=== PATIENT | male | born 1960 | race Caucasian/White ===

== ENCOUNTER → 2016-04-03 | Outpatient (CLI) | payer BC ==
[2016-04-03 07:28] LABS: Basophils % (A) 1 %; CH 32.1; CHCM 33.7; Eosinophils # (A) 0.3 k/uL (0-0.7); Eosinophils % (A) 6 %; HCT 50.1 % (39.0-53.0); HDW 2.37; HGB 16.1 gm/dL (13.0-17.5); Luc # (Auto) 0.17; Luc % (Auto) 4; Lymphocytes # (A) 1.5 k/uL (1.0-4.8); Lymphocytes % (A) 35 %; MCH 30.7 pg (25.0-35.0); MCHC 32.1 g/dL (31.0-37.0); MCV 95.5 fL (80.0-100.0); Mean Platelet Volume 6.2; Monocytes # (A) 0.3 k/uL (0-1.0); Monocytes % (A) 8 %; Neutrophils # (A) 2.1 k/uL (1.3-7.7); Neutrophils % (A) 48 %; RBC 5.24 m/uL (4.30-5.90); RDW 12.8 % (11.5-15.5); WBC 4.4 k/uL (3.8-10.6); WBC (Perox) 4.46
--- NOTE | 2016-04-03 08:26 | US ---
EXAMINATION TYPE: US carotid duplex BILAT DATE OF EXAM: 04/03/2016 7:18 AM COMPARISON: Carotid ultrasound March 16, 2014. CLINICAL HISTORY: HX of TIA Z86.73. Follow up to assess plaque EXAM MEASUREMENTS: RIGHT: Peak Systolic Velocity (PSV) cm/sec ----- Right CCA: 69.2 ----- Right ICA: 93.0 ----- Right ECA: 129.3 ICA/CCA ratio: 1.3 RIGHT: End Diastole cm/sec ----- Right CCA: 21.2 ----- Right ICA: 44.7 ----- Right ECA: 22.7 LEFT: Peak Systolic Velocity (PSV) cm/sec ----- Left CCA: 69.5 ----- Left ICA: 98.5 ----- Left ECA: 121.6 ICA/CCA ratio: 1.4 LEFT: End Diastole cm/sec ----- Left CCA: 26.8 ----- Left ICA: 31.5 ----- Left ECA: 23.8 VERTEBRALS (direction of flow): Right Vertebral: Antegrade Left Vertebral: Antegrade TECHNOLOGIST IMPRESSION: Mild heterogeneous plaque at bilateral bulbs, no significant stenosis seen. Grayscale images redemonstrate mild eccentric plaque at both carotid bulbs. Velocity measurements and ratios in visualized portion of both internal carotid arteries remains within normal limits. No sign ificant change from prior. IMPRESSION: No hemodynamically significant stenosis is identified in either internal carotid artery. No significant change from prior. Criteria for Assigning % of Stenosis / Diameter reduction (Estimation based on the indirect measurements of the internal carotid artery velocities (ICA PSV). 1. Normal (no stenosis)=ICA PSV < 125 cm/s: ratio < 2.0: ICA EDV<40 cm/s.
[2016-04-03 12:47] LABS: ALT 41 U/L (21-72); AST 28 U/L (17-59); Alkaline Phosphatase 58 U/L (38-126); Anion Gap 8 mmol/L; Blood Urea Nitrogen 25 mg/dL (9-20); Calcium 9.4 mg/dL (8.4-10.2); Carbon Dioxide 29 mmol/L (22-30); Chloride 106 mmol/L (98-107); Cholesterol 194 mg/dL (<200); Glucose 98 mg/dL (74-99); HDL Cholesterol 45 mg/dL (40-60); Non-African American GFR(MDRD) >60 (>60 ml/min/1.73 sqM); Sodium 143 mmol/L (137-145); Total Bilirubin 0.5 mg/dL (0.2-1.3); Total Protein 6.9 g/dL (6.3-8.2)
[2016-04-03 12:49] LABS: Triglycerides 116 mg/dL (<150)
== END | disposition home or self-care (01) ==
LOC: RADUSWWP 06:41
PROVIDERS: ATTEND Internal Medicine
DX: Z09 Encounter for follow-up examination after completed treatment for conditions other than malignant neoplasm (principal); I10 Essential (primary) hypertension; E78.5 Hyperlipidemia, unspecified; Z86.73 Personal history of transient ischemic attack (TIA), and cerebral infarction without residual deficits
CPT/HCPCS: 84439; 80061; 80053; 84443; 85025; 93880; G0103

== ENCOUNTER → 2019-11-18 | Outpatient (CLI) | payer BC ==
[2019-11-18 12:06] LABS: Basophils % (A) 1 %; Eosinophils # (A) 0.3 k/uL (0-0.7); Eosinophils % (A) 7 %; HCT 49.1 % (39.0-53.0); HGB 15.5 gm/dL (13.0-17.5); Lymphocytes # (A) 1.6 k/uL (1.0-4.8); Lymphocytes % (A) 33 %; MCH 29.9 pg (25.0-35.0); MCHC 31.6 g/dL (31.0-37.0); MCV 94.6 fL (80.0-100.0); Mean Platelet Volume 6.7; Monocytes # (A) 0.3 k/uL (0-1.0); Monocytes % (A) 7 %; Neutrophils # (A) 2.3 k/uL (1.3-7.7); Neutrophils % (A) 50 %; Platelet Count 282 k/uL (150-450); RDW 13.2 % (11.5-15.5); WBC 4.7 k/uL (3.8-10.6)
[2019-11-18 16:42] LABS: African American GFR (CKD) 118.9 (60.0-200.0); Albumin 4.5 g/dL (3.80-4.90); Albumin/Globulin Ratio 2.05 (1.60-3.17); Anion Gap 7.7 mmol/L (4.00-12.00); BUN/Creat Ratio 27.14 Ratio (12.00-20.00); Calcium 9.3 mg/dL (8.7-10.3); Carbon Dioxide 27.3 mmol/L (21.6-31.8); Chol/HDL Ratio 3.52; Globulin 2.2 g/dL (1.6-3.3); Non-African American GFR(CKD) 102.6 (60.0-200.0); Potassium 4.4 mmol/L (3.5-5.5); Total Bilirubin 0.6 mg/dL (0.2-1.2); Total Protein 6.7 g/dL (6.2-8.2)
[2019-11-18 16:50] LABS: Prostate Specific Antigen 1.3 ng/mL (0.0-4.5); T4, Free (Free Thyroxine) 1.2 ng/dL (0.80-1.80)
== END | disposition home or self-care (01) ==
LOC: LABWHC1 08:44
PROVIDERS: ATTEND Internal Medicine
DX: Z00.00 Encounter for general adult medical examination without abnormal findings (principal)
CPT/HCPCS: 36415; 80053; 80061; 84153; 84439; 84443; 85025

== ENCOUNTER → 2020-11-02 | Outpatient (CLI) | payer BC ==
[2020-11-02 11:03] LABS: Basophils # (A) 0.03 X 10*3/uL (0.00-0.10); Basophils % (A) 0.7 %; Eosinophils # (A) 0.33 X 10*3/uL (0.04-0.35); Eosinophils % (A) 7.3 %; HCT 45.9 % (39.6-50.0); HGB 15.3 g/dL (13.0-17.0); Lymphocytes # (A) 1.66 X 10*3/uL (0.90-5.00); Lymphocytes % (A) 36.8 %; MCH 31.1 pg (27.0-32.0); MCHC 33.3 g/dL (32.0-37.0); MCV 93.3 fL (80.0-97.0); Mean Platelet Volume 9.4 fL (9.5-12.2); Monocytes # (A) 0.58 X 10*3/uL (0.20-1.00); Monocytes % (A) 12.9 %; Neutrophils % (A) 42.1 %; Platelet Count 282 X 10*3/uL (140-440); RBC 4.92 X 10*6/uL (4.40-5.60); RDW 13.1 % (11.5-14.5); WBC 4.51 X 10*3/uL (4.50-10.00)
[2020-11-02 15:58] LABS: Hemoglobin A1C 5.4 % (4.0-6.0)
[2020-11-03 02:42] LABS: Albumin 4.6 g/dL (3.80-4.90); Albumin/Globulin Ratio 2.09 (1.60-3.17); BUN/Creat Ratio 37.14 Ratio (12.00-20.00); Calcium 9.2 mg/dL (8.7-10.3); Chol/HDL Ratio 3.24; Globulin 2.2 g/dL (1.6-3.3); LDL Cholesterol,Calculated 117.4 mg/dL (0.0-131.0); Non-African American GFR(CKD) 101.9 (60.0-200.0); Potassium 4.3 mmol/L (3.5-5.5); Total Bilirubin 0.5 mg/dL (0.3-1.2); Total Protein 6.8 g/dL (6.2-8.2); VLDL Calculation 14.6 mg/dL (5.00-40.00)
[2020-11-03 02:50] LABS: T4, Free (Free Thyroxine) 1.4 ng/dL (0.80-1.80)
[2020-11-03 02:51] LABS: Prostate Specific Antigen 1.1 ng/mL (0.0-4.5)
== END | disposition home or self-care (01) ==
LOC: LABWHC1 07:38
PROVIDERS: ATTEND Internal Medicine
DX: Z00.00 Encounter for general adult medical examination without abnormal findings (principal); E78.5 Hyperlipidemia, unspecified; I10 Essential (primary) hypertension
CPT/HCPCS: 36415; 80053; 80061; 83036; 84153; 84439; 84443; 85025

== ENCOUNTER → 2020-11-27 | Outpatient (CLI) | payer BC ==
--- NOTE | 2020-11-27 12:41 | US ---
EXAMINATION TYPE: US carotid duplex BILAT DATE OF EXAM: 11/27/2020 COMPARISON: US 2017 CLINICAL HISTORY: G45.9 tia. EXAM MEASUREMENTS: RIGHT: Peak Systolic Velocity (PSV) cm/sec ----- Right CCA: 60.7 ----- Right ICA: 150.0 ----- Right ECA: 124.0 ICA/CCA ratio: 2.5 RIGHT: End Diastole cm/sec ----- Right CCA: 18.5 ----- Right ICA: 53.0 ----- Right ECA: 21.0 LEFT: Peak Systolic Velocity (PSV) cm/sec ----- Left CCA: 69.6 ----- Left ICA: 89.2 ----- Left ECA: 118.0 ICA/CCA ratio: 1.3 LEFT: End Diastole cm/sec ----- Left CCA: 20.9 ----- Left ICA: 36.0 ----- Left ECA: 22.6 VERTEBRALS (direction of flow): Right Vertebral: Antegrade Left Vertebral: Antegrade Rhythm: Normal Elevated velocity: right prox and mid ICA Right ICA/CCA ratio 2.5 grayscale, color Doppler, spectral Doppler imaging performed of the carotid a rteries. Elevated peak systolic velocity and end-diastolic velocity, ICA to CCA ratio on the right is present, there is loss of the systolic window, spectral broadening on waveform analysis. IMPRESSION: Hemodynamic significant stenosis of the proximal internal carotid artery on the right co rresponds to 50-69% diameter reduction by Doppler criteria, an indirect measurement of carotid stenos is Criteria for Assigning % of Stenosis / Diameter reduction (Estimation based on the indirect measurements of the internal carotid artery velocities (ICA PSV). 1. Normal (no stenosis)=ICA PSV < 125 cm/s: ratio < 2.0: ICA EDV<40 cm/s. 2. Less than 50% stenosis=ICA PSV < 125 cm/s: ratio < 2.0: ICA EDV<40 cm/s. 3. 50 to 69% stenosis=ICA PSV of 125 to 230 cm/s: ration 2.0 ? 4.0: ICA EDV 40-100 cm/s. 4. Greater than 70% stenosis to near occlusion= ICA PSV > 230 cm/s: ratio > 4.0: ICA EDV > 100 cm/s. 5. Near occlusion= ICA PSV velocities may be low or undetectable: variable ratio and ICA EDV. 6. Total occlusion=unable to detect flow.
== END | disposition home or self-care (01) ==
LOC: RADUSWWP 10:50
PROVIDERS: ATTEND Internal Medicine
DX: I65.21 Occlusion and stenosis of right carotid artery (principal)
CPT/HCPCS: 93880

== ENCOUNTER → 2021-11-02 | Outpatient (CLI) | payer BC ==
--- NOTE | 2021-11-02 11:19 | US ---
EXAMINATION TYPE: US carotid duplex BILAT DATE OF EXAM: 11/02/2021 COMPARISON: US 1121 CLINICAL HISTORY: Z86.73 HX OF TRANSIENT ISCHEMIC ATTACK. H/O TIA, follow-up TECHNIQUE: Carotid duplex ultrasound examination. Indirect Doppler criteria was utilized. FINDINGS: EXAM MEASUREMENTS: RIGHT: Peak Systolic Velocity (PSV) cm/sec ----- Right CCA: 66.0 ----- Right ICA: 178.5 ----- Right ECA: 125.3 ICA/CCA ratio: 2.7 RIGHT: End Diastole cm/sec ----- Right CCA: 21.5 ----- Right ICA: 62.3 ----- Right ECA: 20.4 LEFT: Peak Systolic Velocity (PSV) cm/sec ----- Left CCA: 71.2 ----- Left ICA: 97.8 ----- Left ECA: 114.7 ICA/CCA ratio: 1.4 LEFT: End Diastole cm/sec ----- Left CCA: 23.2 ----- Left ICA: 38.3 ----- Left ECA: 20.2 VERTEBRALS (direction of flow): Right Vertebral: Antegrade Left Vertebral: Antegrade Rhythm: Normal GRINDER SETUP OPERATOR NOTES: Soft plaque right bulb and ICA causing elevated velocities and significant stenosis IMPRESSION: 1. Atheromatous plaquing with moderate stenosis of the right internal carotid artery between 50 and 6 9%. Correlate with the patient's clinical symptoms. 2. Findings are similar to the comparison of 11/27/2020 Criteria for Assigning % of Stenosis / Diameter reduction (Estimation based on the indirect measurements of the internal carotid artery velocities (ICA PSV). 1. Normal (no stenosis)=ICA PSV < 125 cm/s: ratio < 2.0: ICA EDV<40 cm/s. 2. Less than 50% stenosis=ICA PSV < 125 cm/s: ratio < 2.0: ICA EDV<40 cm/s. 3. 50 to 69% stenosis=ICA PSV of 125 to 230 cm/s: ration 2.0 ? 4.0: ICA EDV 40-100 cm/s. 4. Greater than 70% stenosis to near occlusion= ICA PSV > 230 cm/s: ratio > 4.0: ICA EDV > 100 cm/s. 5. Near occlusion= ICA PSV velocities may be low or undetectable: variable ratio and ICA EDV. 6. Total occlusion=unable to detect flow.
== END | disposition home or self-care (01) ==
LOC: RADUSWWP 10:47
PROVIDERS: ATTEND Internal Medicine
DX: I65.21 Occlusion and stenosis of right carotid artery (principal); Z86.73 Personal history of transient ischemic attack (TIA), and cerebral infarction without residual deficits
CPT/HCPCS: 93880

== ENCOUNTER → 2021-12-14 | Outpatient (CLI) | payer BC ==
[2021-12-14 17:58] LABS: Basophils # (A) 0.03 X 10*3/uL (0.00-0.10); Basophils % (A) 0.7 %; Eosinophils # (A) 0.22 X 10*3/uL (0.04-0.35); Eosinophils % (A) 4.9 %; HGB 15.9 g/dL (13.0-17.0); Immature Grans, Automated 0.2 %; Lymphocytes # (A) 1.35 X 10*3/uL (0.90-5.00); Lymphocytes % (A) 29.9 %; MCH 31.8 pg (27.0-32.0); MCHC 33.8 g/dL (32.0-37.0); Mean Platelet Volume 9.5 fL (9.5-12.2); Monocytes # (A) 0.47 X 10*3/uL (0.20-1.00); Monocytes % (A) 10.4 %; NRBC Per 100 WBC 0 /100 WBCS (0.0-0.0); Neutrophils # (A) 2.44 X 10*3/uL (1.80-7.70); Neutrophils % (A) 53.9 %; Platelet Count 311 X 10*3/uL (140-440); RDW 13.2 % (11.5-14.5); WBC 4.52 X 10*3/uL (4.50-10.00)
[2021-12-14 18:29] LABS: African American GFR (CKD) 118.5 (60.0-200.0); Albumin 4.8 g/dL (3.8-4.9); Albumin/Globulin Ratio 1.95 (1.60-3.17); Anion Gap 10.7 mmol/L (10.00-18.00); BUN/Creat Ratio 40.18 Ratio (12.00-20.00); Blood Urea Nitrogen 27.4 mg/dL (9.0-27.0); Calcium 9.6 mg/dL (8.7-10.3); Carbon Dioxide 26.3 mmol/L (20.0-27.5); Globulin 2.5 g/dL (1.6-3.3); Non-African American GFR(CKD) 102.2 (60.0-200.0); Potassium 4.3 mmol/L (3.5-5.5); Prostate Specific Antigen 1.5 ng/mL (0.00-4.50); T4, Free (Free Thyroxine) 1.24 ng/dL (0.800-1.800); Total Bilirubin 0.2 mg/dL (0.30-1.20); Total Protein 7.2 g/dL (6.2-8.2)
== END | disposition home or self-care (01) ==
LOC: LABWHC1 07:37
PROVIDERS: ATTEND Internal Medicine
DX: Z00.00 Encounter for general adult medical examination without abnormal findings (principal)
CPT/HCPCS: 36415; 80053; 84153; 84439; 84443; 85025

== ENCOUNTER → 2022-02-27 | Outpatient (CLI) | payer BC ==
[2022-02-27 16:30] LABS: Chol/HDL Ratio 3.89 Ratio; LDL Cholesterol,Calculated 130.6 mg/dL (0.0-131.0); VLDL Calculation 15.84 mg/dL (5.00-40.00)
== END | disposition home or self-care (01) ==
LOC: LABWHC1 07:13
PROVIDERS: ATTEND Internal Medicine
DX: Z00.00 Encounter for general adult medical examination without abnormal findings (principal)
CPT/HCPCS: 36415; 80061

== ENCOUNTER 2022-09-17 09:12 | Day surgery (SDC) | payer BC ==
[~2022-09-17 09:12] MED LIST: LACTATED RINGERS 1,000 ML IV SCH
[2022-09-17 09:32] VITALS: TEMP 97.5
[2022-09-17] MEDS ORDERED: PROPOFOL 10 MG/ML 20 ML VIAL IV ONE (10:09)
--- NOTE | 2022-09-17 10:28 | P.PCN ---
Date of Procedure: 09/17/22 Procedure(s) Performed: BRIEF HISTORY: Patient is a 62-year-old pleasant male scheduled for an elective colonoscopy as a part of screening for colon cancer. PROCEDURE PERFORMED: Colonoscopy. PREOPERATIVE DIAGNOSIS: Screening for colon cancer. IV sedation per Anesthesia. PROCEDURE: After informed consent was obtained, the patient, was brought into the endoscopy unit. IV sedation was administered by Anesthesia under continuous monitoring. Digital rectal examination was normal. Initially the Olympus CF-160 flexible video colonoscope was then inserted in the rectum, gradually advanced into the cecum without any difficulty. Careful examination was performed as the scope was gradually being withdrawn. Ileocecal valve and the appendiceal orifice were visualized and appeared normal. Prep was excellent. Mucosa of the cecum, ascending colon, transverse colon, descending colon, sigmoid colon, and rectum appeared normal. Retroflexion was performed in the rectum and no lesions were seen. The patient tolerated the procedure well. IMPRESSION: Normal-appearing colon from rectum to cecum with no evidence of colorectal neoplasia . RECOMMENDATIONS: Findings of this examination were discussed with the patient as well as his family.. He was advised to have a repeat screening colonoscopy in 10 years..
[2022-09-17 10:41] VITALS: RESP 16
[2022-09-17 10:59] VITALS: BP 130/81; PULSE 55
== END 2022-09-17 11:02 | disposition home or self-care (01) ==
LOC: ORWHC2ENDO 09:12
PROVIDERS: ATTEND Internal Medicine Gastroenterology
DX: Z12.11 Encounter for screening for malignant neoplasm of colon (principal); I10 Essential (primary) hypertension; E78.5 Hyperlipidemia, unspecified; J45.909 Unspecified asthma, uncomplicated; Z88.0 Allergy status to penicillin; Z79.899 Other long term (current) drug therapy
CPT/HCPCS: 45378; J2704

== ENCOUNTER → 2024-06-21 | Outpatient (CLI) | payer MEDICARE ==
[2024-06-21 10:22] LABS: Basophils # (A) 0.03 X 10*3/uL (0.00-0.10); Basophils % (A) 0.7 %; Eosinophils % (A) 4.6 %; HCT 47.5 % (39.6-50.0); HGB 16.1 g/dL (13.0-17.0); Lymphocytes % (A) 32.5 %; MCH 31.4 pg (27.0-32.0); MCHC 33.9 g/dL (32.0-37.0); MCV 92.6 FL (80.0-97.0); Mean Platelet Volume 9.1 FL (9.5-12.2); Monocytes # (A) 0.62 X 10*3/uL (0.20-1.00); Monocytes % (A) 14.4 %; NRBC Per 100 WBC 0 X 10*3/uL (0.00-0.01); Neutrophils # (A) 2.05 X 10*3/uL (1.80-7.70); Neutrophils % (A) 47.6 %; Platelet Count 269 X 10*3/uL (140-440); RBC 5.13 X 10*6/uL (4.40-5.60); RDW 12.7 % (11.5-14.5); WBC 4.31 X 10*3/uL (4.50-10.00)
[2024-06-21 11:41] LABS: ALT 39 U/L (10-49); AST 32 U/L (14-35); Albumin 4.4 g/dL (3.8-4.9); Alkaline Phosphatase 61 U/L (41-126); Calcium 9.1 mg/dL (8.7-10.3); Carbon Dioxide 23.5 mmol/L (21.6-31.8); Chloride 100 mmol/L (96-109); Chol/HDL Ratio 3.42 Ratio; Glucose 103 mg/dL (70-110); LDL Cholesterol,Calculated 122.9 mg/dL (0.0-131.0); Potassium 4.4 mmol/L (3.5-5.5); Sodium 138 mmol/L (135-145); Total Bilirubin 0.4 mg/dL (0.3-1.2); Total Protein 6.4 g/dL (6.2-8.2); VLDL Calculation 13.58 mg/dL (5.00-40.00)
[2024-06-21 11:42] LABS: T4, Free (Free Thyroxine) 1.25 ng/dL (0.80-1.80)
== END | disposition home or self-care (01) ==
LOC: LABWHC1 07:47
PROVIDERS: ATTEND Internal Medicine
DX: Z00.00 Encounter for general adult medical examination without abnormal findings (principal); Z12.5 Encounter for screening for malignant neoplasm of prostate; I10 Essential (primary) hypertension; M19.90 Unspecified osteoarthritis, unspecified site; E78.00 Pure hypercholesterolemia, unspecified; Z86.73 Personal history of transient ischemic attack (TIA), and cerebral infarction without residual deficits
CPT/HCPCS: 84439; 80061; 80053; 84443; 85025; 83036; 36415; G0103

== ENCOUNTER → 2024-07-06 | Outpatient (CLI) | payer MEDICARE ==
--- NOTE | 2024-07-06 08:36 | US ---
EXAMINATION TYPE: US carotid duplex BILAT DATE OF EXAM: 07/06/2024 COMPARISON: 11/02/21 CLINICAL INDICATION: Male, 64 years old with history of I65.29 OCCLUSION AND STENOSIS OF UNSPECIFIED CAROT; follow up on stenosis Additional History: I65.- Occlusion/stenosis of specified precerebral artery, specified laterality TECHNIQUE: Grayscale, color Doppler and spectral Doppler evaluation of the bilateral carotid systems and vertebral arteries. Indirect Doppler criteria was utilized. FINDINGS: EXAM MEASUREMENTS: RIGHT: Peak Systolic Velocity (PSV) cm/sec ----- Right CCA: 70.0 ----- Right ICA: 370.1 ----- Right ECA: 113.9 ICA/CCA ratio: 5.3 RIGHT: End Diastole cm/sec ----- Right CCA: 19.4 ----- Right ICA: 125.4 ----- Right ECA: 22.9 LEFT: Peak Systolic Velocity (PSV) cm/sec ----- Left CCA: 79.1 ----- Left ICA: 84.2 ----- Left ECA: 90.1 ICA/CCA ratio: 1.1 LEFT: End Diastole cm/sec ----- Left CCA: 22.8 ----- Left ICA: 35.8 ----- Left ECA: 17.6 VERTEBRALS (direction of flow): Right Vertebral: Antegrade Left Vertebral: Antegrade Rhythm: Normal SERVICE DELIVERY DIRECTOR NOTES: Moderate amount of plaque seen in bilateral bulbs and bilateral prox ICA's. Narrow ing seen in the right prox ICA resulting in elevated velocities. IMPRESSION: Velocity elevations proximal right ICA indicate a severe, greater than 70%, right ICA stenosis. Measu rements increased from 11/02/2021. Criteria for Assigning % of Stenosis / Diameter reduction (Estimation based on the indirect measurements of the internal carotid artery velocities (ICA PSV). 1. Normal (no stenosis)=ICA PSV < 180 cm/s: ratio < 2.0: ICA EDV<40 cm/s. 2. Less than 50% stenosis=ICA PSV < 180 cm/s: ratio < 2.0: ICA EDV<40 cm/s. 3. 50 to 69% stenosis=ICA PSV of 180 to 230 cm/s: ration 2.0 ? 4.0: ICA EDV 40-100 cm/s. PSV 125-180 cm/sec and ICA/CCA PSV Ratio ? 2.0 is also consistent with 50-69% stenosis 4. Greater than 70% stenosis to near occlusion= ICA PSV > 230 cm/s: ratio > 4.0: ICA EDV > 100 cm/s. 5. Near occlusion= ICA PSV velocities may be low or undetectable: variable ratio and ICA EDV. 6. Total occlusion=unable to detect flow. [facility], , 07/06/2024 8:33 AM
== END | disposition home or self-care (01) ==
LOC: RADUSWWP 07:55
PROVIDERS: ATTEND Internal Medicine
DX: I65.21 Occlusion and stenosis of right carotid artery (principal)
CPT/HCPCS: 93880

== ENCOUNTER → 2024-07-30 | Outpatient (CLI) | payer MEDICARE ==
[2024-07-30 13:31] LABS: African American GFR (CKD) >90 (>60 ml/min/1.73 sqM); Blood Urea Nitrogen 20 mg/dL (9-20); Non-African American GFR(CKD) >90 (>60 ml/min/1.73 sqM)
--- NOTE | 2024-07-30 14:51 | CT ---
EXAMINATION TYPE: CT angio head neck DATE OF EXAM: 07/30/2024 COMPARISON: None CLINICAL INDICATION: Male, 64 years old with history of I65.29 STENOSIS OF UNSPECIFIED CAROTID ARTERY ; PHH, Unspecified carotid stenosis, pt states RT side is more TECHNIQUE: CTA scan of the head and neck is performed with IV Contrast, patient injected with 65 mL of Isovue 370, axial images are obtained, coronal and sagittal reformatted images are reviewed. 3D re constructed images are created on an independent workstation and reviewed. CT DLP: [address] CTDI: mGy Automated exposure control for dose reduction was used. NASCET criteria was used in interpretation of this exam? FINDINGS: FINDINGS: The brachiocephalic origins are widely patent and no significant stenosis. There is marked irregularity in the proximal segment of the right internal carotid artery just distal to the carotid bifurcation. There is a severe greater than 70% stenosis possibly with a degree of ul ceration. The right common carotid artery is widely patent without significant stenosis. There is a minimal 10-20% stenosis of the origin of the left internal carotid artery. The vertebral a rteries are widely patent without significant stenosis. IMPRESSION:. 1. No stenosis of the brachiocephalic origins. 2. Severe greater than 70% stenosis with possible ulceration in the proximal right internal carotid a rtery. 3. Minimal left internal carotid artery stenosis. NASCET criteria was used in interpretation of this exam? [facility], , 07/30/2024 2:49 PM
== END | disposition home or self-care (01) ==
LOC: RADCTMAIN 12:50
PROVIDERS: ATTEND Surgery
DX: I65.23 Occlusion and stenosis of bilateral carotid arteries (principal)
CPT/HCPCS: 82565; 84520; 70496; 70498; 36415; Q9967

== ENCOUNTER → 2024-09-13 | Outpatient (CLI) | payer MEDICARE ==
[2024-09-13 10:10] LABS: HCT 44.3 % (39.6-50.0); HGB 14.4 g/dL (13.0-17.0); MCH 30.8 pg (27.0-32.0); MCHC 32.5 g/dL (32.0-37.0); MCV 94.9 FL (80.0-97.0); NRBC Per 100 WBC 0 X 10*3/uL (0.00-0.01); Platelet Count 263 X 10*3/uL (140-440); RBC 4.67 X 10*6/uL (4.40-5.60); RDW 13.3 % (11.5-14.5); WBC 4.35 X 10*3/uL (4.50-10.00)
== END | disposition home or self-care (01) ==
LOC: LABPAT 07:25
PROVIDERS: ATTEND Anesthesiology
DX: Z01.812 Encounter for preprocedural laboratory examination (principal); I65.23 Occlusion and stenosis of bilateral carotid arteries
CPT/HCPCS: 84132; 85027; 86850; 86900; 86901

== ENCOUNTER 2024-09-15 05:34 | Inpatient (IN) | payer MEDICARE ==
[2024-09-10 10:02] VITALS: BMI 29.3
[2024-09-15] MEDS ORDERED: LIDOCAINE 1% (10MG/ML) FOR IV START INTRADERMA PRN (05:57)
[2024-09-15] MEDS: IV FLUID CONTINUATION 1,000 ML IV ONE (06:09)
[2024-09-15] MEDS: ONDANSETRON 4 MG/2 ML VIAL IVP ONE (06:24)
[2024-09-15] MEDS: LACTATED RINGERS 1,000 ML IV SCH (06:24)
[2024-09-15] MEDS: DEXAMETHASONE SOD PHOSPHATE 4 MG/ML 1 ML VIAL IVP STA (06:25)
[2024-09-15] MEDS: MIDAZOLAM 2 MG/2 ML VIAL IV ONE (06:49)
[2024-09-15] MEDS ORDERED: HYDROmorphone 0.5 MG/0.5 ML SYRINGE IVP PRN (07:00)
[2024-09-15] MEDS ORDERED: GLYCOPYRROLATE 0.2 MG/ML 2 ML VIAL ONE (07:24)
[2024-09-15] MEDS ORDERED: MIDAZOLAM 2 MG/2 ML VIAL ONE (07:24)
[2024-09-15] MEDS ORDERED: NEOSTIGMINE 1 MG/ML 10 ML VIAL ONE (07:24)
[2024-09-15] MEDS ORDERED: LIDOCAINE 1% INJ 10MG/ML (20 ML MDV) ONE (07:24)
[2024-09-15] MEDS ORDERED: PHENYLEPHRINE 10 MG/ML VIAL ONE (07:24)
[2024-09-15] MEDS ORDERED: ePHEDrine 50 MG/ML 1 ML VIAL ONE (07:24)
[2024-09-15] MEDS ORDERED: PHENYLEPHRINE-0.9% NACL SYG 1,000 MCG/10 ML SYRINGE ONE (07:24)
[2024-09-15] MEDS ORDERED: HEPARIN SODIUM,PORCINE 10,000 UNIT/ML 1 ML VIAL ONE (07:24)
[2024-09-15] MEDS ORDERED: PROPOFOL 10 MG/ML 20 ML VIAL IV ONE (07:24)
[2024-09-15] MEDS ORDERED: fentaNYL (PF) 50 MCG/ML 2 ML AMP ONE (07:24)
[2024-09-15] MEDS ORDERED: ROCURONIUM 10 MG/ML (5 ML VIAL) IV ONE (07:24)
[2024-09-15] MEDS: LIDOCAINE 1% INJ 10MG/ML (20 ML MDV) SQ ONE (08:02)
[2024-09-15] MEDS: HEPARIN SODIUM (1,000 UNIT/ML) 2,000 UNIT in SODIUM CHLORIDE 0.9% 1,000 ML IRRIGATION ONE (08:03)
[2024-09-15] MEDS: ceFAZolin 2 GM in SODIUM CHLORIDE 0.9% 500 ML 500 ML IRRIGATION ONE (08:03)
[2024-09-15] MEDS: THROMBIN (BOVINE) 5,000 UNIT VIAL TOPICAL ONE ×2 (08:06→09:14)
[2024-09-15] MEDS: LACTATED RINGERS 1,000 ML IV ONE ×2 (09:26→12:27)
[2024-09-15] MEDS ORDERED: HYDROcodone/APAP 5-325MG 1 EACH TAB PO PRN (09:36)
[2024-09-15] MEDS ORDERED: TRIMETHOBENZAMIDE 100 MG/ML 2 ML VIAL IM PRN (09:36)
[2024-09-15] MEDS ORDERED: MAG HYDROX/AL HYDROX/SIMETH 30 ML CUP PO PRN (09:36)
[2024-09-15] MEDS ORDERED: MORPHINE SULFATE 4 MG/ML SYRINGE IV PRN (09:36)
[2024-09-15] MEDS ORDERED: BENZOCAINE/MENTHOL LOZENG 1 EACH LOZENGE MUCOUS MEM PRN (09:36)
[2024-09-15] MEDS: PHENYLEPHRINE 10 MG/ML VIAL IV ONE ×5 (10:02→10:36)
--- NOTE | 2024-09-15 10:38 | P.OP ---
Description of Procedure: Date of Procedure: 09/15/2024 Preoperative Diagnosis: Symptomatic right internal carotid artery stenosis Postoperative Diagnosis: Same Procedure(s) Performed: Right carotid endarterectomy with patch angioplasty Anesthesia: CATERINAA Surgeon: Jai Forrester Estimated Blood Loss (ml): 50 IV Fluids: See anesthesia record Urine Output: See anesthesia record Pathology: Carotid plaque Condition: stable Disposition: PACU Indications for Procedure: 64-year-old gentleman with history of TIA years ago presented to the office secondary to severe stenosis of the right internal carotid artery seen on carotid duplex as well as CTA. Due to his age and location of the plaque as well as the calcification it was determined that he would be a good candidate for carotid endarterectomy and presents today for such procedure. Description of Procedure: After written informed consent was obtained the patient all risks benefits and complications were described the patient is brought to the operative suite and laid in a supine position. The area of the neck was prepped and draped in usual sterile fashion after appropriate anesthetic was performed per the anesthesiologist. A timeout was performed in normal fashion antibiotics were administered prior to incision. An oblique incision was then created just anterior to the sternocleidomastoid mu sculature with a 10 blade scalpel and dissection was carried down to the carotid sheath. The carotid sheath was then entered after facial vein was located and suture ligated in normal fashion. The common carotid, internal carotid, external carotid and superior thyroid arteries were located and dissected free in a meticulous fashion circumferentially and controlled with vessel loops. Attention was then placed to locating the vagus nerve as well as hypoglossal nerve which were both spared. Once controlled patient was administered heparin and followed with ACTs for appropriate heparinization. Once ACT was above 200 the proximal and distal aspects of the dissection were then controlled with vascular clamps. Arteriotomy was then created with 11 blade scalpel and extended with Woodruff Chaves scissors. Cerebral oximetry was utilized throughout the case and did not drop more than 10 points throughout the case. No shunt was required and endarterectomy was then performed with a [place] and elevator. The plaque was then feathered at the distal aspect and the internal carotid artery and removed. The area was copiously irrigated with heparinized saline and all free debris was removed. A 7-0 Prolene suture was then placed to tack the distal aspect of the dissection at the internal carotid artery. A 0.8 x 8 cm bovine pericardial patch was then chosen and patch angioplasty was performed with 6-0 Prolene suture in a running fashion. Prior to last sutures being placed the inflow was released flushing any free debris out of the patch. This was reclamped and the internal carotid artery was released revealing good brisk flow and was once again reclamped. The external carotid and superior thyroid artery were then released followed by the common carotid artery to allow any free debris to be flushed into the external system. Final sutures were placed and secured. Internal carotid artery control was then released. Good pulsatile flow was noted through the patch and a Doppler was utilized demonstrating good brisk flow into the internal, external carotid arteries without any signs of obstruction. Hemostasis was then assured with Gelfoam and thrombin. A 10- Polish VALERIE drain was then placed in normal fashion and secured with 3-0 nylon suture. The incision was then closed in a multilayer fashion after hemostasis was assured. The skin was then cleansed and dressings were placed. Patient tolerated the procedure well and was following commands and moving all extremities. Patient was then sent to PACU for recovery.
[2024-09-15] MEDS: PHENYLEPHRINE 40 MG in SODIUM CHLORIDE 0.9% 250 ML IV SCH (10:41)
[2024-09-15 12:44] LABS: Glucose,Whole Blood 136 mg/dL (70-110)
[2024-09-15 13:33] LABS: Basophils # (A) 0.02 10*3/uL (0.00-0.10); Basophils % (A) 0.2 %; Eosinophils # (A) 0.01 10*3/uL (0.04-0.35); Eosinophils % (A) 0.1 %; HCT 41.4 % (39.6-50.0); HGB 14.5 g/dL (13.0-17.0); Lymphocytes # (A) 0.78 10*3/uL (0.90-5.00); Lymphocytes % (A) 7.0 %; MCH 32.6 pg (27.0-32.0); MCHC 35.0 g/dL (32.0-37.0); MCV 93.0 fL (80.0-97.0); Monocytes # (A) 0.32 10*3/uL (0.20-1.00); Monocytes % (A) 2.9 %; Neutrophils # (A) 10.00 10*3/uL (1.80-7.70); Neutrophils % (A) 89.4 %; Platelet Count 323 10*3/uL (140-440); RBC 4.45 10*6/uL (4.40-5.60); RDW 13.1 % (11.5-14.5); WBC 11.17 10*3/uL (4.50-10.00)
[2024-09-15 13:54] LABS: African American GFR (CKD) >90 (>60 ml/min/1.73 sqM); Anion Gap 9 mmol/L; Blood Urea Nitrogen 13 mg/dL (9-20); Calcium 9.3 mg/dL (8.4-10.2); Carbon Dioxide 23 mmol/L (22-30); Chloride 106 mmol/L (98-107); Glucose 128 mg/dL (74-99); Non-African American GFR(CKD) >90 (>60 ml/min/1.73 sqM); Potassium 4.3 mmol/L (3.5-5.1); Sodium 138 mmol/L (137-145)
--- NOTE | 2024-09-15 14:31 | P.CONS ---
History of Present Illness - Reason for Consult Consult date: 09/15/24 - History of Present Illness Patient is a 64-year-old male with history of TIA, carotid artery stenosis, hypertension, dyslipidemia presenting for elective right carotid endarterectomy with patch angioplasty. [facility] physicians consulted for medical management. Patient currently bradycardic with heart rate of 46, respiratory rate of 10, blood pressure 134/58, saturating at 95% on room air. Postoperatively, patient is on phenylephrine. Currently being monitored in medical ICU. WBC 11.17, platelet 223, hemoglobin 14.5, creatinine 0.51, glucose range between 128-136. Pertinent positives and negatives as discussed in HPI, a complete review of systems was performed and all other systems are negative. Patient seen and examined at bedside. Vital signs reviewed General: nontoxic, no distress, appears at stated age Derm: warm, dry, dressing clean, dry, intact Head: atraumatic, normocephalic, symmetric Eyes: EOMI, no lid lag, anicteric sclera, pupils equal round reactive to light ENT: Nose and ears atraumatic Neck: No thyromegaly, supple Mouth: no lip lesion, mucus membranes moist Cardiovascular: S1S2 reg, no murmur, no edema Lungs: clear to auscultation bilateral, no rhonchi, no rales, no wheeze, no accessory muscle use Abdominal: soft, nontender to palpation, no guarding, no appreciable orga nomegaly Ext: no gross muscle atrophy, muscle strength muscle strength 5 out of 5 in all 4 extremities, no contractures Neuro: CN II-XII grossly intact Psych: Alert, oriented, appropriate affect Assessment/Plan: Active: Carotid artery stenosis status post right carotid endarterectomy with patch angioplasty Postoperative hypotension and bradycardia, anticipated outcome Leukocytosis, likely reactive History of TIA Dyslipidemia - On aspirin 162 mg daily - Restart home ezetimibe 10 mg daily - On phenylephrine, continue to wean - Continue to monitor CBC and BMP History of hypertension - Hold amlodipine, hydrochlorothiazide, losartan given hypotension Lovenox 40 subcu daily for DVT prophylaxis Pain control per vascular surgery Thank you for allowing us to participate in the care of this pleasant patient. Do not hesitate to contact us with questions. Someone can be reached from the [facility] hospitalist group all hours of the day at [phone] or via [employer]. Past Medical History Past Medical History: Asthma, CVA/TIA, Hyperlipidemia, Hypertension Additional Past Medical History / Comment(s): allergies-rare asthma with air quality or pollens, TIA, R carotid stenosis History of Any Multi-Drug Resistant Organisms: None Reported Past Surgical History: Hernia Repair Additional Past Surgical History / Comment(s): Colonoscopy Past Anesthesia/Blood Transfusion Reactions: No Reported Reaction, Motion Sickness Additional Past Anesthesia/Blood Transfusion Reaction / Comm: No hx of blood transfusion; motion sickness on boat Smoking Status: Never smoker - Past Family History Mother Family Medical History: Cancer Additional Family Medical History / Comment(s): lymphoma Father Family Medical History: Cancer Additional Family Medical History / Comment(s): stomach Medications and Allergies Home Medications Medication Instructions Recorded Confirmed Type Clopidogrel [Plavix] 75 mg PO DAILY 09/10/22 09/10/24 History Ezetimibe [Zetia] 10 mg PO DAILY 09/10/22 09/10/24 History Losartan Potassium 100 mg PO DAILY 09/10/22 09/10/24 History amLODIPine BESYLATE 10 mg PO DAILY 09/10/22 09/10/24 History hydroCHLOROthiazide 25 mg PO DAILY 09/10/22 09/10/24 History Albuterol Inhaler [Ventolin Hfa 1 - 2 puff INHALATION Q6H PRN 09/10/24 09/10/24 History Inhaler] Aspirin [Adult Low Dose Aspirin EC] 81 mg PO DAILY 09/10/24 09/10/24 History Cholecalciferol [Vitamin D3 (25 1 dose PO DAILY 09/10/24 09/10/24 History Mcg = 1000 Iu)] Cider Vinegar [Apple Cider Vinegar] 450 mg PO DAILY 09/10/24 09/10/24 History Cinnamon Bark [Cinnamon] 1 dose PO DAILY 09/10/24 09/10/24 History Ursula 1 dose PO DAILY 09/10/24 09/10/24 History Glucosamine/Chondr Chen A Sod [Osteo 1 each PO DAILY 09/10/24 09/10/24 History Bi-Flex Caplet] L.acidoph,Paracasei, B.lactis 1 each PO DAILY 09/10/24 09/10/24 History [Probiotic] Magnesium Glycinate 1 dose PO DAILY 09/10/24 09/10/24 History Red Beet [Beet Root] 1 dose PO DAILY 09/10/24 09/10/24 History flaxseed oiL [Flax Oil] 1 dose PO DAILY 09/10/24 09/10/24 History Allergies Allergy/AdvReac Type Severity Reaction Status Date / Time cat dander Allergy Rash/Hives Verified 09/10/24 09:33 mold Allergy Rash/Hives Verified 09/10/24 09:33 Penicillins Allergy Rash/Hives Verified 09/10/24 09:33 Physical Exam Vitals: Vital Signs Temp Pulse Pulse Resp BP BP BP 09/15/24 14:00 46 L 10 L 09/15/24 13:45 45 L 12 09/15/24 13:30 48 L 12 09/15/24 13:15 48 L 19 131/42 09/15/24 13:00 46 L 16 09/15/24 12:50 98.0 F 49 L 14 09/15/24 12:40 120/68 09/15/24 12:20 49 L 12 127/68 133/59 09/15/24 12:05 47 L 12 130/78 130/57 09/15/24 11:40 49 L 12 138/73 136/60 09/15/24 11:25 45 L 11 L 139/77 140/61 09/15/24 11:10 46 L 10 L 139/72 132/58 09/15/24 10:55 46 L 12 143/80 136/60 09/15/24 10:45 48 L 12 93/61 90/46 09/15/24 10:40 45 L 12 93/61 09/15/24 10:36 100/62 100/50 09/15/24 10:32 112/59 125/61 09/15/24 10:30 110/65 09/15/24 10:25 64 12 103/62 09/15/24 10:18 100/53 09/15/24 10:11 102/49 09/15/24 10:09 49 L 9 L 103/65 100/49 09/15/24 10:07 108/53 09/15/24 10:05 112/54 09/15/24 10:03 127/63 09/15/24 10:02 99/60 09/15/24 09:54 97.7 F 68 12 124/58 99/60 09/15/24 07:06 59 L 16 09/15/24 06:12 98.1 F 71 18 BP Pulse Ox 09/15/24 14:00 95 09/15/24 13:45 96 09/15/24 13:30 97 09/15/24 13:15 96 09/15/24 13:00 96 09/15/24 12:50 96 09/15/24 12:40 09/15/24 12:20 97 09/15/24 12:05 98 09/15/24 11:40 98 09/15/24 11:25 95 09/15/24 11:10 95 09/15/24 10:55 94 L 09/15/24 10:45 95 09/15/24 10:40 96 09/15/24 10:36 09/15/24 10:32 09/15/24 10:30 09/15/24 10:25 94 L 09/15/24 10:18 09/15/24 10:11 09/15/24 10:09 97 09/15/24 10:07 09/15/24 10:05 09/15/24 10:03 09/15/24 10:02 09/15/24 09:54 96 09/15/24 07:06 123/70 99 09/15/24 06:12 126/81 97 Intake and Output 09/14/24 09/15/24 09/15/24 22:59 06:59 14:59 Intake Total 200 2851.895 Output Total 2050 Balance 200 801.895 Intake: IV 200 2322 Lactated Ringers 1,000 ml 70 @ 20 mls/hr IV .Q24H ADRI Rx#:[id number] Intake, IV Titration 39.895 Amount Phenylephrine 40 mg In 39.895 Sodium Chloride 0.9% 250 ml @ 0.5 MCG/KG/MIN 17. 221 mls/hr IV .[id number] [facility] Rx#:[id number] Oral 490 Output: Urine 2000 Estimated Blood Loss 50 Other: Weight 90.4 kg ABP, PAP, CO, CI - Last 8 Hours Arterial Blood Pressure 134/58 Arterial Blood Pressure 132/55 Arterial Blood Pressure 134/57 Arterial Blood Pressure 131/59 Arterial Blood Pressure 102/49 Arterial Blood Pressure 120/53 Results CBC & Chem 7: 09/15/24 13:10 09/15/24 13:10 Labs: Abnormal Lab Results - Last 24 Hours (Table) 07/30/25 07/30/25 07/30/25 Range/Units 12:43 13:10 13:10 WBC 11.17 H (4.50-10.00) 10*3/uL MCH 32.6 H (27.0-32.0) pg Neutrophils # 10.00 H (1.80-7.70) 10*3/uL Lymphocytes # 0.78 L (0.90-5.00) 10*3/uL Eosinophils # 0.01 L (0.04-0.35) 10*3/uL Creatinine 0.51 L (0.66-1.25) mg/dL Glucose 128 H (74-99) mg/dL POC Glucose (mg/dL) 136 H (70-110) mg/dL
[2024-09-15] MEDS: ACETAMINOPHEN TAB 325 MG TAB PO PRN (16:07)
--- NOTE | 2024-09-15 19:51 | P.ANPRN ---
Procedure Note - Anesthesia - Invasive Line Right Arterial Line Time Out Performed: Yes Date of Procedure: 09/15/24 Time of Procedure: 06:56 Location of Patient: PreOp Preparation: Sterile Prep, Sterile Dressing Arterial Line Location: Briachial Ultrasound Used: No Purpose - Visualization and Identification of Vasculature: No Image Stored and Saved: No Narrative: Invasive line placement per sterile protocol utilized.
[2024-09-16] MEDS: ENOXAPARIN 40 MG/0.4 ML SYRINGE SQ SCH (08:31)
[2024-09-16] MEDS: CLOPIDOGREL 75 MG TAB PO SCH (08:31)
[2024-09-16] MEDS: ASPIRIN 81 MG PO SCH (08:31)
[2024-09-16] MEDS: EZETIMIBE 10 MG TAB PO SCH (08:31)
[2024-09-16] MEDS ORDERED: ASPIRIN 81 MG PO SCH (09:00)
--- NOTE | 2024-09-16 09:29 | P.PN ---
Subjective Progress Note Date: 09/16/24 Subjective: Patient seen and examined at bedside. No acute events overnight. Denies any lightheadedness, shortness of breath, chest pain, palpitations. Pertinent positives and negatives as discussed above, a complete review of systems was performed and all other systems are negative. Vitals Signs Reviewed. General: Nontoxic, no distress, appears at stated age Derm: Warm, dry, dressing clean, dry, intact Head: Atraumatic, normocephalic, symmetric Eyes: EOMI, no lid lag, anicteric sclera Mouth: No lip lesion, mucus membranes moist Cardiovascular: S1S2 reg, bradycardia, no murmur Lungs: CTA bilateral, no rhonchi, no rales, no accessory muscle use Abdominal: Soft, nontender to palpation, no guarding, no appreciable organomegaly Ext: No gross muscle atrophy, no edema, no contractures Neuro: CN II-XI grossly intact, no focal neuro deficits Psych: Alert, oriented, appropriate affect Data Reviewed Today: Pertinent Labs: No new labs Imaging: No new imaging Assessment and Plan: Active: Carotid artery stenosis status post right carotid endarterectomy with patch angioplasty Postoperative hypotension and bradycardia, anticipated outcome Leukocytosis, likely reactive History of TIA Dyslipidemia - On aspirin 81 mg daily, Plavix 75 mg daily - Continue on ezetimibe 10 mg daily - On phenylephrine, continue to wean - Discussed management with vascular surgery, patient has asymptomatic bradycardia likely secondary to carotid surgery - Patient can be discharged home once able to wean off of phenylephrine - Outpatient follow-up with primary - Will likely need to hold antihypertensives at home History of hypertension - Hold amlodipine, hydrochlorothiazide, losartan given hypotension Lovenox 40 subcu daily for DVT prophylaxis Pain control per vascular surgery Patient currently being monitored in medical ICU. Thank you for allowing us to participate in the care of this pleasant patient. Do not hesitate to contact us with questions. Someone can be reached from the [facility] hospitalist group all hours of the day at [phone] or via [employer]. Objective - Vital Signs Vital signs: Vital Signs Temp 97.6 F 09/16/24 04:00 Pulse 47 L 09/16/24 07:00 Resp 14 09/16/24 07:00 BP 118/69 09/16/24 07:00 Pulse Ox 96 09/16/24 07:00 FiO2 Intake & Output 0709/16/24 09/16/24 18:59 06:59 18:59 Intake Total 3441.895 610.359 69.574 Output Total 2625 1255 20 Balance 816.895 -644.641 49.574 Weight 94.9 kg Intake: IV 2422 240 Lactated Ringers 1,000 ml 170 240 @ 20 mls/hr IV .Q24H ADRI Rx#:[id number] Intake, IV Titration 39.895 370.359 69.574 Amount Phenylephrine 40 mg In 39.895 370.359 69.574 Sodium Chloride 0.9% 250 ml @ 0.5 MCG/KG/MIN 17. 221 mls/hr IV .[id number] ADRI Rx#:[id number] Oral 980 Output: Drainage 20 20 Right Lower Neck 20 20 Urine 2575 1235 Estimated Blood Loss 50 Other: Voiding Method Indwelling Catheter Indwelling Catheter ABP, PAP, CO, CI - Last Documented Arterial Blood Pressure 143/68 - Labs CBC & Chem 7: 09/15/24 13:10 09/15/24 13:10 Labs: Abnormal Lab Results - Last 24 Hours (Table) 09/15/24 09/15/24 09/15/24 Range/Units 12:43 13:10 13:10 WBC 11.17 H (4.50-10.00) 10*3/uL MCH 32.6 H (27.0-32.0) pg Neutrophils # 10.00 H (1.80-7.70) 10*3/uL Lymphocytes # 0.78 L (0.90-5.00) 10*3/uL Eosinophils # 0.01 L (0.04-0.35) 10*3/uL Creatinine 0.51 L (0.66-1.25) mg/dL Glucose 128 H (74-99) mg/dL POC Glucose (mg/dL) 136 H (70-110) mg/dL
--- NOTE | 2024-09-16 12:03 | P.DS ---
Providers Date of admission: 09/15/24 05:34 Attending physician: Jai Forrester DO Consults: 09/15/24 13:53 Consult Physician Routine Consulting Provider: Sofie Cervantes Consult Reason/Comments: medical management Do you want consulting provider notified?: Yes Primary care physician: France Ángel [facility] Course: 64-year-old male with symptomatic right internal carotid artery stenosis with history of TIA years ago elected to undergo right carotid endarterectomy with patch angioplasty. He is postop day #1 for right carotid endarterectomy with patch angioplasty. Patient required some pressor support with Irineo-Synephrine for hypotension which is to be expected post carotid. He has been asymptomatic. He has no focal deficits. He is swallowing without difficulty. Denies any significant pain in his neck but has some discomfort that was improved with acetaminophen. Hill catheter has been discontinued and he is voiding. Patient has also had some bradycardia again likely secondary to carotid endarterectomy with low-lying baseline heart rate. Internal medicine managing and have cleared patient for discharge. Incision right side of neck with some surrounding ecchymosis no hematoma, about 30 mL of serosanguineous drainage from VALERIE drain. VALERIE drain removed and incision is well-approximated. Patient is afebrile And hemodynamically stable. Exam General appearance: The patient is alert, oriented, appears in no acute distress. HET: Head is normocephalic and atraumatic. Pupils are equal and reactive. Neck: Supple. Right side of neck with incision well-approximated with some s urrounding ecchymosis, minimal swelling and no hematoma. VALERIE drain removed. Heart: Regular. Lungs: Equal expansion, normal respiratory effort. Abdomen: Soft, nontender, nondistended. Extremities: Normal skin color and turgor. Neurological: No focal deficits. Strength and sensation are grossly intact. Assessment 1. Symptomatic right internal carotid artery stenosis status post right carotid endarterectomy with patch angioplasty 2. Postoperative hypotension and bradycardia, expected surgical outcome 3. History of TIA 4. Dyslipidemia Plan Irineo-Synephrine weaned down and discontinued. Internal medicine on consultation for medical management and cleared patient. Plan for discharge this afternoon. Encourage ambulation. Continue aspirin and Plavix as well as home meds per primary medical team. Follow-up in 2 weeks with surgeon. Discharge instructions reviewed with patient and . The impression and plan of care has been dictated as directed. Dr. Forrester I performed a history and examination of this patient, discussed the same with the dictator. I agree with the dictator's note ,documented as a scribe. Any additional findings or plans will be noted. Procedures: Right carotid endarterectomy with patch angioplasty Patient Condition at Discharge: Stable Plan - Discharge Summary Discharge Rx Participant: No New Discharge Prescriptions: New Acetaminophen Tab [Tylenol] 650 mg PO Q4HR PRN tab PRN Reason: Pain Continue Albuterol Inhaler [Ventolin Hfa Inhaler] 1 - 2 puff INHALATION Q6H PRN PRN Reason: Shortness Of Breath Ezetimibe [Zetia] 10 mg PO DAILY Clopidogrel [Plavix] 75 mg PO DAILY Aspirin [Adult Low Dose Aspirin EC] 81 mg PO DAILY Discontinued amLODIPine BESYLATE 10 mg PO DAILY Losartan Potassium 100 mg PO DAILY No Action hydroCHLOROthiazide 25 mg PO DAILY Glucosamine/Chondr Chen A Sod [Osteo Bi-Flex Caplet] 1 each PO DAILY Cholecalciferol [Vitamin D3 (25 Mcg = 1000 Iu)] 1 dose PO DAILY Cinnamon Bark [Cinnamon] 1 dose PO DAILY Red Beet [Beet Root] 1 dose PO DAILY Cider Vinegar [Apple Cider Vinegar] 450 mg PO DAILY L.acidoph,Paracasei, B.lactis [Probiotic] 1 each PO DAILY Magnesium Glycinate 1 dose PO DAILY flaxseed oiL [Flax Oil] 1 dose PO DAILY Ursula 1 dose PO DAILY Discharge Medication List Clopidogrel [Plavix] 75 mg PO DAILY 09/10/22 [History] Ezetimibe [Zetia] 10 mg PO DAILY 09/10/22 [History] hydroCHLOROthiazide 25 mg PO DAILY 09/10/22 [History] Albuterol Inhaler [Ventolin Hfa Inhaler] 1 - 2 puff INHALATION Q6H PRN 09/10/24 [History] Aspirin [Adult Low Dose Aspirin EC] 81 mg PO DAILY 09/10/24 [History] Cholecalciferol [Vitamin D3 (25 Mcg = 1000 Iu)] 1 dose PO DAILY 09/10/24 [History] Cider Vinegar [Apple Cider Vinegar] 450 mg PO DAILY 09/10/24 [History] Cinnamon Bark [Cinnamon] 1 dose PO DAILY 09/10/24 [History] Ursula 1 dose PO DAILY 09/10/24 [History] Glucosamine/Chondr Chen A Sod [Osteo Bi-Flex Caplet] 1 each PO DAILY 09/10/24 [History] L.acidoph,Paracasei, B.lactis [Probiotic] 1 each PO DAILY 09/10/24 [History] Magnesium Glycinate 1 dose PO DAILY 09/10/24 [History] Red Beet [Beet Root] 1 dose PO DAILY 09/10/24 [History] flaxseed oiL [Flax Oil] 1 dose PO DAILY 09/10/24 [History] Acetaminophen Tab [Tylenol] 650 mg PO Q4HR PRN tab 09/16/24 [Rx] Follow up Appointment(s)/Referral(s): Jai Forrester DO [STAFF PHYSICIAN] - 2 Weeks France Neal MD [Primary Care Provider] - 3 Days Activity/Diet/Wound Care/Special Instructions: No strenuous activity or heavy lifting greater than 10 pounds. May shower tomorrow but no tub bathing or soaking. Watch incision site for infection including redness, drainage, or temperature greater than 100.4. If you notice he symptoms please call office Hold home blood pressure medications including amlodipine, hydrochlorothiazide and losartan until you are seen by Dr. Neal Discharge Disposition: HOME SELF-CARE
[2024-09-16 12:06] VITALS: TEMP 96.5
[2024-09-16 13:48] VITALS: BP 107/69
[2024-09-16 14:01] VITALS: PULSE 68; RESP 21
== END 2024-09-16 15:16 | disposition home or self-care (01) | DRG 39 ==
LOC: 2ORMAIN 05:34 → EDSTATUS 07:30 → 2SICU 12:00
PROVIDERS: ADMIT Surgery; ATTEND Surgery
PROC: 3E033XZ Introduction of Vasopressor into Peripheral Vein, Percutaneous Approach (ICD-10-PCS; 2024-09-15)
PROC: 03UK0JZ Supplement Right Internal Carotid Artery with Synthetic Substitute, Open Approach (ICD-10-PCS; principal; 2024-09-15 07:30)
PROC: 03CK0ZZ Extirpation of Matter from Right Internal Carotid Artery, Open Approach (ICD-10-PCS; principal; 2024-09-15 07:30)
DX: I65.21 Occlusion and stenosis of right carotid artery (principal); D72.829 Elevated white blood cell count, unspecified; I10 Essential (primary) hypertension; J45.909 Unspecified asthma, uncomplicated; E78.5 Hyperlipidemia, unspecified; I95.89 Other hypotension; Z86.73 Personal history of transient ischemic attack (TIA), and cerebral infarction without residual deficits; R00.1 Bradycardia, unspecified; Z79.82 Long term (current) use of aspirin; Z79.02 Long term (current) use of antithrombotics/antiplatelets; Z79.899 Other long term (current) drug therapy; Z88.0 Allergy status to penicillin
CPT/HCPCS: 80048; 85025; 88304

== ENCOUNTER 2024-09-16 17:51 | Inpatient (IN) | payer MEDICARE ==
--- NOTE | 2024-09-16 18:08 | ED ---
General Adult HPI - General Chief complaint: Recheck/Abnormal Lab/Rx Stated complaint: Post-op issue Time Seen by Provider: 09/16/24 18:02 Source: patient Mode of arrival: ambulatory Limitations: no limitations - History of Present Illness Initial comments: This patient is a 64-year-old man who presents with complaint that he is developing right sided neck swelling. The patient had right carotid endarterectomy with patch angioplasty performed here yesterday by Dr. Forrester. He had been discharged today. The patient states that he was at home he was cooking macaroni and then felt a sensation in his neck and noticed that there was swelling developing at the surgical site. When it continued to swell he was brought here by family members. The patient denies headache. No sensory change. No weakness. Onset/Timin -: minutes(s) Location: neck Radiation: neck Quality: dull Consistency: constant Improves with: none Worsens with: none Treatments Prior to Arrival: none - Related Data Home Medications Medication Instructions Recorded Confirmed Clopidogrel [Plavix] 75 mg PO DAILY 09/10/22 09/17/24 Ezetimibe [Zetia] 10 mg PO DAILY 09/10/22 09/17/24 Albuterol Inhaler [Ventolin Hfa 2 puff INHALATION Q6H PRN 09/10/24 09/17/24 Inhaler] Aspirin [Adult Low Dose Aspirin EC] 81 mg PO DAILY 09/10/24 09/17/24 Cholecalciferol [Vitamin D3 (25 25 mcg PO DAILY 09/10/24 09/17/24 Mcg = 1000 Iu)] Cider Vinegar [Apple Cider Vinegar] 300 mg PO DAILY 09/10/24 09/17/24 Cinnamon Bark [Cinnamon] 500 mg PO DAILY 09/10/24 09/17/24 Ursula 500 mg PO DAILY 09/10/24 09/17/24 Glucosamine/Chondr Chen A Sod [Osteo 1 tab PO DAILY 09/10/24 09/17/24 Bi-Flex Caplet] L.acidoph,Paracasei, B.lactis 1 cap PO DAILY 09/10/24 09/17/24 [Probiotic] Flaxseed Oil (Unknown Dose) 1 cap PO DAILY 09/17/24 09/17/24 Magnesium Glycinate (Unknown Dose) 1 cap PO DAILY 09/17/24 09/17/24 Red Beet Root (Unknown Dose) 1 tab PO DAILY 09/17/24 09/17/24 Previous Rx's Medication Instructions Recorded Acetaminophen Tab [Tylenol] 650 mg PO Q4HR PRN tab 09/16/24 Allergies Allergy/AdvReac Type Severity Reaction Status Date / Time cat dander Allergy Rash/Hives Verified 09/17/24 08:37 mold Allergy Rash/Hives Verified 09/17/24 08:37 Penicillins Allergy Rash/Hives Verified 09/17/24 08:37 Review of Systems ROS Statement: Those systems with pertinent positive or pertinent negative responses have been documented in the HPI. ROS Other: All systems not noted in ROS Statement are negative. Constitutional: Denies: fever, chills, weakness Eyes: Denies: vision change Respiratory: Denies: cough, dyspnea Cardiovascular: Denies: chest pain, palpitations Gastrointestinal: Denies: abdominal pain, nausea, vomiting Genitourinary: Denies: dysuria, hematuria Musculoskeletal: Denies: back pain Skin: Denies: rash Neurological: Denies: headache, weakness Past Medical History Past Medical History: Asthma, CVA/TIA, Hyperlipidemia, Hypertension Additional Past Medical History / Comment(s): allergies-rare asthma with air quality or pollens, TIA, R carotid stenosis History of Any Multi-Drug Resistant Organisms: None Reported Past Surgical History: Hernia Repair Additional Past Surgical History / Comment(s): Colonoscopy, carotid endarterectomy Past Anesthesia/Blood Transfusion Reactions: No Reported Reaction, Motion Sickness Additional Past Anesthesia/Blood Transfusion Reaction / Comment(s): No hx of blood transfusion; motion sickness on boat Past Psychological History: No Psychological Hx Reported Smoking Status: Never smoker Past Alcohol Use History: None Reported Past Drug Use History: None Reported - Past Family History Mother Family Medical History: Cancer Additional Family Medical History / Comment(s): lymphoma Father Family Medical History: Cancer Additional Family Medical History / Comment(s): stomach General Exam Limitations: no limitations General appearance: alert, in no apparent distress Head exam: Present: atraumatic, normocephalic Eye exam: Present: normal appearance. Absent: PERRL, EOMI, scleral icterus, conjunctival injection ENT exam: Present: normal oropharynx Neck exam: Present: tenderness, full ROM, other (The patient does have clean, dry, intact incision over the right carotid. There is palpable hematoma probably 6 cm in size, firm. No abnormal warmth, erythema, drainage.). Absent: meningismus, lymphadenopathy Respiratory exam: Present: normal lung sounds bilaterally. Absent: respiratory distress, wheezes, rales, rhonchi, stridor, accessory muscle use Cardiovascular Exam: Present: regular rate, normal rhythm, normal heart sounds. Absent: systolic murmur, diastolic murmur, rubs, gallop GI/Abdominal exam: Present: soft. Absent: distended, tenderness, guarding, rebound, rigid, mass Extremities exam: Present: normal inspection, normal capillary refill. Absent: pedal edema, calf tenderness Back exam: Present: normal inspection. Absent: CVA tenderness (R), CVA tenderness (L) Neurological exam: Present: alert Skin exam: Present: warm, dry, intact, normal color. Absent: rash Course Vital Signs 09/16/24 09/16/24 09/16/24 17:52 18:01 19:06 Temperature 98.2 F Pulse Rate 68 60 71 Respiratory 18 18 15 Rate Blood Pressure 150/75 132/71 155/61 O2 Sat by Pulse 97 98 96 Oximetry EKG Findings - EKG Results: EKG: interpreted by JACQUELYN, sinus rhythm (Rate 69 bpm), normal axis, normal QRS, normal ST/T Medical Decision Making - Medical Decision Making Patient is 64-year-old man returning to emergency department to have evaluation of right neck swelling. He had right carotid endarterectomy with patch angioplasty yesterday by Dr. Forrester. Case discussed with Dr. Forrester. Patient has expanding hematoma suspected active bleeding. He is sent for CT scan which does reveal approximately a 7 cm hematoma with active extravasation per my interpretation. Called and discussed again with Dr. Forrester, who then discussed with anesthesia, activated OR and took patient to OR. The patient had CT scan including angiography of the neck. I interpreted this to show approximately 7 cm hematoma and active extravasation of dye. Was pt. sent in by a medical professional or institution (, PA, AUTOMATED TELLER MANAGER, urgent care, hospital, or group home...) When possible be specific @ -[No] Did you speak to anyone other than the patient for history (EMS, parent, family, police, friend...)? What history was obtained from this source @ -[Family contributed to history Did you review nursing and triage notes (agree or disagree)? Why? @ -[I reviewed and agree with nursing and triage notes] Were old charts reviewed (outside hosp., previous admission, EMS record, old EKG, old radiological studies, urgent care reports/EKG's, group home records)? Report findings @ -Yes, old charts were reviewed] Differential Diagnosis (chest pain, altered mental status, abdominal pain women, abdominal pain men, vaginal bleeding, weakness, fever, dyspnea, syncope, headache, dizziness, GI bleed, back pain, seizure, CVA, palpatations, mental health, musculoskeletal)? @ -[The differential diagnosis includes postsurgical hematoma, neck infection, arterial dissection, neck trauma. EKG interpreted by me (3pts min.). @ -[As above] X-rays interpreted by me (1pt min.). @ -[None done] CT interpreted by me (1pt min.). @ -[I interpreted as above U/S interpreted by me (1pt. min.). @ -[None done] What testing was considered but not performed or refused? (CT, X-rays, U/S, labs)? Why? @ -[None] What meds were considered but not given or refused? Why? @ -[None] Did you discuss the management of the patient with other professionals (prof mai i.e. , PA, AUTOMATED TELLER MANAGER, lab, RT, psych nurse, 7th grade social studies teacher, titrator, teacher, corporate responsibility officer, patient case coordinator)? Give summary @ -[Multiple discussions with Dr. Forrester, as above Was smoking cessation discussed for >3mins.? @ -[No] Was critical care preformed (if so, how long)? @ -[Yes, 30 minutes Were there social determinants of health that impacted care today? How? (Homelessness, low income, unemployed, alcoholism, drug addiction, transportation, low edu. Level, literacy, decrease access to med. care, halfway, rehab)? @ -[No] Was there de-escalation of care discussed even if they declined (Discuss DNR or withdrawal of care, Hospice)? DNR status @ -[No] What co-morbidities impacted this encounter? (DM, HTN, Smoking, COPD, CAD, Cancer, CVA, ARF, Chemo, Hep., AIDS, mental health diagnosis, sleep apnea, morbid obesity)? @ -[Recent carotid endarterectomy Was patient admitted / discharged? Hospital course, mention meds given and route, prescriptions, significant lab abnormalities, going to OR and other pertinent info. @ -[See the above note Undiagnosed new problem with uncertain prognosis? @ -[No] Drug Therapy requiring intensive monitoring for toxicity (Heparin, Nitro, Insulin, Cardizem)? @ -[No] Were any procedures done? @ -[No] Diagnosis/symptom? @ -[Right neck hematoma Acute, or Chronic, or Acute on Chronic? @ -[Acute uncomplicated Uncomplicated (without systemic symptoms) or Complicated (systemic symptoms)? @ -[ Side effects of treatment? @ -[No] Exacerbation, Progression, or Severe Exacerbation? @ -[No] Poses a threat to life or bodily function? How? (Chest pain, [place], [place], pneumonia, PE, COPD, DKA, ARF, appy, cholecystitis, CVA, Diverticulitis, Homicidal, Chen icidal, threat to staff... and all critical care pts) @ -Yes, requires urgent vascular surgery evaluation and treatment All treatments are based on ideal body weight as in ED triage - Lab Data Result diagrams: 09/17/24 03:14 09/17/24 03:14 Lab Results 09/16/24 09/16/24 09/16/24 Range/Units 18:07 18:07 18:07 WBC 8.98 (4.50-10.00) 10*3/uL RBC 4.16 L (4.40-5.60) 10*6/uL Hgb 13.6 (13.0-17.0) g/dL Hct 39.3 L (39.6-50.0) % MCV 94.5 (80.0-97.0) fL MCH 32.7 H (27.0-32.0) pg MCHC 34.6 (32.0-37.0) g/dL Plt Count 277 (140-440) 10*3/uL MPV 9.5 (9.5-12.2) fL Immature Gran % (Auto) 0.1 % Neutrophils % 55.8 % Lymphocytes % 32.5 % Monocytes % 9.8 % Eosinophils % 1.4 % Basophils % 0.4 % Immature Gran # 0.01 (0.00-0.04) 10*3/uL Neutrophils # 5.00 (1.80-7.70) 10*3/uL Lymphocytes # 2.92 (0.90-5.00) 10*3/uL Monocytes # 0.88 (0.20-1.00) 10*3/uL Eosinophils # 0.13 (0.04-0.35) 10*3/uL Basophils # 0.04 (0.00-0.10) 10*3/uL PT 11.6 (10.0-12.5) sec INR 1.1 (<1.2) APTT 22.4 (22.0-30.0) sec Sodium 137 (137-145) mmol/L Potassium 3.9 (3.5-5.1) mmol/L Chloride 104 (98-107) mmol/L Carbon Dioxide 23 (22-30) mmol/L Anion Gap 10 mmol/L BUN 15 (9-20) mg/dL Creatinine 0.65 L (0.66-1.25) mg/dL Est GFR (CKD-EPI)AfAm >90 (>60 ml/min/1.73 sqM) Est GFR (CKD-EPI)NonAf >90 (>60 ml/min/1.73 sqM) Glucose 105 H (74-99) mg/dL Calcium 9.4 (8.4-10.2) mg/dL Total Bilirubin 0.6 (0.2-1.3) mg/dL AST 28 (17-59) U/L ALT 26 (4-49) U/L Alkaline Phosphatase 54 (38-126) U/L Total Protein 6.6 (6.3-8.2) g/dL Albumin 4.2 (3.5-5.0) g/dL Disposition Clinical Impression: Hematoma of neck Disposition: ADMITTED IP TO THIS HOSP Condition: Stable Is patient prescribed a controlled substance at d/c from ED?: No
[2024-09-16 18:16] LABS: Basophils # (A) 0.04 10*3/uL (0.00-0.10); Basophils % (A) 0.4 %; Eosinophils # (A) 0.13 10*3/uL (0.04-0.35); Eosinophils % (A) 1.4 %; HCT 39.3 % (39.6-50.0); HGB 13.6 g/dL (13.0-17.0); Lymphocytes # (A) 2.92 10*3/uL (0.90-5.00); Lymphocytes % (A) 32.5 %; MCH 32.7 pg (27.0-32.0); MCHC 34.6 g/dL (32.0-37.0); MCV 94.5 fL (80.0-97.0); Monocytes # (A) 0.88 10*3/uL (0.20-1.00); Monocytes % (A) 9.8 %; Neutrophils # (A) 5.00 10*3/uL (1.80-7.70); Neutrophils % (A) 55.8 %; Platelet Count 277 10*3/uL (140-440); RBC 4.16 10*6/uL (4.40-5.60); RDW 13.2 % (11.5-14.5); WBC 8.98 10*3/uL (4.50-10.00)
[2024-09-16] MEDS: ONDANSETRON 4 MG/2 ML VIAL IVP STA (18:31)
[2024-09-16] MEDS: MORPHINE SULFATE 4 MG/ML SYRINGE IV STA (18:33)
[2024-09-16 18:34] LABS: ALT 26 U/L (4-49); AST 28 U/L (17-59); African American GFR (CKD) >90 (>60 ml/min/1.73 sqM); Albumin 4.2 g/dL (3.5-5.0); Alkaline Phosphatase 54 U/L (38-126); Anion Gap 10 mmol/L; Blood Urea Nitrogen 15 mg/dL (9-20); Calcium 9.4 mg/dL (8.4-10.2); Carbon Dioxide 23 mmol/L (22-30); Chloride 104 mmol/L (98-107); Glucose 105 mg/dL (74-99); INR 1.1 (<1.2); Non-African American GFR(CKD) >90 (>60 ml/min/1.73 sqM); Partial Thromboplastin Time 22.4 sec (22.0-30.0); Potassium 3.9 mmol/L (3.5-5.1); Prothrombin Time 11.6 sec (10.0-12.5); Sodium 137 mmol/L (137-145); Total Protein 6.6 g/dL (6.3-8.2)
--- NOTE | 2024-09-16 19:35 | CT ---
EXAMINATION TYPE: CT angio head neck DATE OF EXAM: 09/16/2024 6:39 PM COMPARISON: CTA head and neck 07/30/2024. CLINICAL INDICATION: Male, 64 years old with history of hematoma, neck; PHH, hematoma TECHNIQUE: Axially acquired helical CT angiogram of the neck was obtained with contrast. Axial images are supplemented with 3D reconstructions and MIP images which were post-processed at an independent workstation. NASCET criteria used. Contrast used:65 mL of Isovue 370 with IV Contrast, Oral contrast used: None. CT DLP: 703.7 mGycm, Automated exposure control for dose reduction was used. FINDINGS: CTA HEAD: The partially visualized cerebral arteries appear opacified with no discrete abnormality. CTA NECK: There is a large complex collection seen in the right-sided neck roughly measuring 7.1 x 10.1 x 5.4 c m (TR, CC, AP). There is mass effect upon the regional structures. This collection is seen extending down into the inferior right-sided neck/supraclavicular tissues. Within this collection at the level of the larynx there is a curvilinear arterial enhancing blush suggestive of a feeding vessel without unclear origin. There are multiple foci of gas seen primarily surrounding this complex collection. Right Carotid System: The common carotid artery and external carotid artery are patent. The carotid bifurcation demonstrate s no evidence of hemodynamically significant stenosis. The remaining portions of the internal carotid artery demonstrate normal size without significant narrowing. Left Carotid System: The common carotid artery and external carotid artery are patent. There is mixed calcified and noncal cified atherosclerotic changes involving the left carotid system with less than 50% hemodynamic steno sis. The remaining portions of the internal carotid artery demonstrate normal size without significan t narrowing. Vertebral arteries are patent without evidence hemodynamically significant stenosis. The origins of the great vessels are patent. No evidence of hemodynamically significant stenosis. Upper thorax: There are multiple foci of free air noted in the right-sided neck coursing into the upper mediastinum . IMPRESSION: 1. There is a large hematoma noted in the right-sided neck grossly measuring up to 10 cm in greatest dimension extending into the inferior right-sided neck supraclavicular tissues. There is an area of a rterial enhancement seen within the collection which is concerning for a feeding artery and arterial hemorrhage. The origin of this feeding vessel is unclear. There is notable subcutaneous free air seen surrounding this collection in the right neck with free air foci extending into the upper and centra l mediastinum. Findings may relate to previous day endarterectomy. Emergent surgical consultation is recommended. 2. There is opacification of the bilateral carotid arteries extending to the calvarium with no obviou s hemodynamic stenosis or other critical abnormality. Findings of the case were discussed with ordering provider Dr. Ballard over the phone at approximately 7:15 PM on 09/16/[address] Rodriguez. [facility], , 09/16/2024 7:33 PM
[2024-09-16] MEDS ORDERED: LIDOCAINE 1% INJ 10MG/ML (20 ML MDV) ONE (19:50)
[2024-09-16] MEDS ORDERED: fentaNYL (PF) 50 MCG/ML 2 ML AMP ONE (19:50)
[2024-09-16] MEDS ORDERED: PROPOFOL 10 MG/ML 20 ML VIAL IV ONE (19:50)
[2024-09-16] MEDS: LACTATED RINGERS 1,000 ML IV ONE ×2 (19:50→20:40)
[2024-09-16] MEDS ORDERED: MIDAZOLAM 2 MG/2 ML VIAL ONE (19:50)
[2024-09-16] MEDS ORDERED: SUCCINYLCHOLINE CHLORIDE 200 MG/10 ML VIAL IV ONE (19:50)
[2024-09-16] MEDS ORDERED: ePHEDrine 50 MG/ML 1 ML VIAL ONE (19:50)
--- NOTE | 2024-09-16 19:57 | P.GSCN ---
History of Present Illness Consult date: 09/16/24 Reason for Consult: Expanding hematoma History of present illness: 64-year-old gentleman with history of right carotid artery stenosis with recent carotid endarterectomy and patch angioplasty yesterday who was discharged home earlier today after removal of a VALERIE drain presents back to the emergency department secondary to increased swelling at the neck. He states prior to leaving he had no issues with his neck and there was no significant swelling after removal of his drain but when he went home he went to the bathroom and afterwards started making some macaroni and noted an increase sensation in his neck which turned into increased swelling and pain. He states that the swelling did not stop until he got to the emergency department. While in the emergency department he underwent CTA of the neck which demonstrated a large 7 cm hematoma with active extravasation and feeding vessel of unknown origin. He denies any lateralizing symptoms such as weakness, vision changes or speech issues. He states his jaw has some discomfort due to the pressure. He also has been experiencing some nausea. Review of Systems All systems: negative (What is mentioned in the HPI or past medical history) Past Medical History Past Medical History: Asthma, CVA/TIA, Hyperlipidemia, Hypertension Additional Past Medical History / Comment(s): allergies-rare asthma with air quality or pollens, TIA, R carotid stenosis History of Any Multi-Drug Resistant Organisms: None Reported Past Surgical History: Hernia Repair Additional Past Surgical History / Comment(s): Colonoscopy, carotid endarterectomy Past Anesthesia/Blood Transfusion Reactions: No Reported Reaction, Motion Sickness Additional Past Anesthesia/Blood Transfusion Reaction / Comm: No hx of blood transfusion; motion sickness on boat Past Psychological History: No Psychological Hx Reported Smoking Status: Never smoker Past Alcohol Use History: None Reported Past Drug Use History: None Reported - Past Family History Mother Family Medical History: Cancer Additional Family Medical History / Comment(s): lymphoma Father Family Medical History: Cancer Additional Family Medical History / Comment(s): stomach Medications and Allergies Home Medications Medication Instructions Recorded Confirmed Type Clopidogrel [Plavix] 75 mg PO DAILY 09/10/22 09/10/24 History Ezetimibe [Zetia] 10 mg PO DAILY 09/10/22 09/10/24 History Albuterol Inhaler [Ventolin Hfa 1 - 2 puff INHALATION Q6H PRN 09/10/24 09/10/24 History Inhaler] Aspirin [Adult Low Dose Aspirin EC] 81 mg PO DAILY 09/10/24 09/10/24 History Cholecalciferol [Vitamin D3 (25 1 dose PO DAILY 09/10/24 09/10/24 History Mcg = 1000 Iu)] Cider Vinegar [Apple Cider Vinegar] 450 mg PO DAILY 09/10/24 09/10/24 History Cinnamon Bark [Cinnamon] 1 dose PO DAILY 09/10/24 09/10/24 History Ursula 1 dose PO DAILY 09/10/24 09/10/24 History Glucosamine/Chondr Chen A Sod [Osteo 1 each PO DAILY 09/10/24 09/10/24 History Bi-Flex Caplet] L.acidoph,Paracasei, B.lactis 1 each PO DAILY 09/10/24 09/10/24 History [Probiotic] Magnesium Glycinate 1 dose PO DAILY 09/10/24 09/10/24 History Red Beet [Beet Root] 1 dose PO DAILY 09/10/24 09/10/24 History flaxseed oiL [Flax Oil] 1 dose PO DAILY 09/10/24 09/10/24 History Acetaminophen Tab [Tylenol] 650 mg PO Q4HR PRN tab 09/16/24 Rx Allergies Allergy/AdvReac Type Severity Reaction Status Date / Time cat dander Allergy Rash/Hives Verified 09/16/24 17:55 mold Allergy Rash/Hives Verified 09/16/24 17:55 Penicillins Allergy Rash/Hives Verified 09/16/24 17:55 Surgical - Exam Vital Signs Temp Pulse Resp BP Pulse Ox 98.2 F 68 18 150/75 97 09/16/24 17:52 09/16/24 17:52 09/16/24 17:52 09/16/24 17:52 09/16/24 17:52 Patient Seen Date: 09/16/24 Patient Seen Time: 19:40 - General well developed, well nourished, moderate distress, moderate pain - Eyes PERRL - ENT normal pinna, normal nares - Neck Hematoma noted on the right at the site of the previous endarterectomy. tense skin. Exquisite tenderness to palpation - Respiratory normal expansion, normal respiratory effort - Cardiovascular Rhythm: regular - Neurologic normal coordination, normal sensation - Musculoskeletal normal gait - Psychiatric oriented to time, oriented to person, oriented to place, speech is normal Results CTA of the neck demonstrates large hematoma with active bleeding - Labs 09/16/24 18:07 09/16/24 18:07 Abnormal Lab Results - Last 24 Hours (Table) 09/16/24 09/16/24 Range/Units 18:07 18:07 RBC 4.16 L (4.40-5.60) 10*6/uL Hct 39.3 L (39.6-50.0) % MCH 32.7 H (27.0-32.0) pg Creatinine 0.65 L (0.66-1.25) mg/dL Glucose 105 H (74-99) mg/dL Diabetes panel 09/16/24 Range/Units 18:07 Sodium 137 (137-145) mmol/L Potassium 3.9 (3.5-5.1) mmol/L Chloride 104 (98-107) mmol/L Carbon Dioxide 23 (22-30) mmol/L BUN 15 (9-20) mg/dL Creatinine 0.65 L (0.66-1.25) mg/dL Glucose 105 H (74-99) mg/dL Calcium 9.4 (8.4-10.2) mg/dL AST 28 (17-59) U/L ALT 26 (4-49) U/L Alkaline Phosphatase 54 (38-126) U/L Total Protein 6.6 (6.3-8.2) g/dL Albumin 4.2 (3.5-5.0) g/dL Calcium panel 09/16/24 Range/Units 18:07 Calcium 9.4 (8.4-10.2) mg/dL Albumin 4.2 (3.5-5.0) g/dL Pituitary panel 09/16/24 Range/Units 18:07 Sodium 137 (137-145) mmol/L Potassium 3.9 (3.5-5.1) mmol/L Chloride 104 (98-107) mmol/L Carbon Dioxide 23 (22-30) mmol/L BUN 15 (9-20) mg/dL Creatinine 0.65 L (0.66-1.25) mg/dL Glucose 105 H (74-99) mg/dL Calcium 9.4 (8.4-10.2) mg/dL Adrenal panel 09/16/24 Range/Units 18:07 Sodium 137 (137-145) mmol/L Potassium 3.9 (3.5-5.1) mmol/L Chloride 104 (98-107) mmol/L Carbon Dioxide 23 (22-30) mmol/L BUN 15 (9-20) mg/dL Creatinine 0.65 L (0.66-1.25) mg/dL Glucose 105 H (74-99) mg/dL Calcium 9.4 (8.4-10.2) mg/dL Total Bilirubin 0.6 (0.2-1.3) mg/dL AST 28 (17-59) U/L ALT 26 (4-49) U/L Alkaline Phosphatase 54 (38-126) U/L Total Protein 6.6 (6.3-8.2) g/dL Albumin 4.2 (3.5-5.0) g/dL Assessment and Plan Assessment: Expanding hematoma right neck with active bleeding Postop day 1 right carotid endarterectomy and patch angioplasty Plan: To the OR for emergent hematoma evacuation and hemorrhage control. Discussed with the patient as well as his family who are at bedside risks, benefits and complications. They are agreeable to surgery and he will be taken emergently.
[2024-09-16] MEDS: ceFAZolin 1,000 MG VIAL IVPB ONE (20:00)
[2024-09-16] MEDS: THROMBIN (BOVINE) 5,000 UNIT VIAL TOPICAL ONE (20:00)
[2024-09-16] MEDS: ceFAZolin 1,000 MG in SODIUM CHLORIDE 0.9% 1,000 ML IRRIGATION ONE (20:17)
[2024-09-16] MEDS ORDERED: ACETAMINOPHEN TAB 325 MG TAB PO PRN (21:17)
[2024-09-16] MEDS ORDERED: MAG HYDROX/AL HYDROX/SIMETH 30 ML CUP PO PRN (21:17)
--- NOTE | 2024-09-16 21:32 | P.OP ---
Date of Procedure: 09/16/24 Preoperative Diagnosis: Expanding right neck hematoma Postop day 1 right carotid endarterectomy and patch angioplasty Postoperative Diagnosis: Same Procedure(s) Performed: Reexploration of the right neck with evacuation of hematoma and hemorrhage control Anesthesia: ROSA ELENA Surgeon: Jai Forrester Estimated Blood Loss (ml): 20 Pathology: none sent Condition: stable Disposition: PACU Indications for Procedure: 64-year-old gentleman with history of right carotid endarterectomy and patch angioplasty performed yesterday who ultimately went home this morning came back to the hospital after feeling a weird sensation in the neck and having expansion of swelling and pain. He was seen in the emergency department and had a CTA which demonstrated active extravasation from an unknown vessel branch with a large 7 cm hematoma. He presents to the OR for evacuation. Operative Findings: Large amount of hematoma was expressed and evacuated. Upon evaluation there was a small branch that was actively bleeding which was cauterized and controlled. There was some oozing throughout the surgical field which was controlled with Gelfoam and thrombin. Description of Procedure: After written and informed consent was obtained with the patient all risk, benefits and complications were described the patient was brought to the operative suite laid in a supine position. The area of the neck was prepped and draped in usual sterile fashion after appropriate anesthetic was performed per the anesthesiologist. A timeout was performed normal fashion antibiotics were administered prior to incision. The existing incision site was then reopened with a 10 blade scalpel and Metzenbaum scissors. Once the platysma was reopened there was a large amount of clot expressed with active bleeding noted from the medial aspect of the wound medially to the carotid artery as well as at the area just under the platysma. The vessel was then cauterized and hemostasis was controlled. The rest of the neck was explored and antibiotic irrigation was placed with no active kacey noted. There was some areas of small oozing at the subcutaneous tissue which was controlled also with electrocautery. The patch angioplasty was also interrogated which demonstrated no active bleeding from the suture line. Hemostasis was then ensured throughout the wound bed with Gelfoam and thrombin as well as Surgicel powder. A 10 VALERIE drain was then placed once again through the existing VALERIE site and sutured in place with 2-0 nylon suture. The incision was then closed in a multilayer fashion with 3-0 Vicryl for the platysma and a 4-0 running Monocryl for the skin. The skin was then cleansed and dressings were placed. The patient tolerated the procedure well and was moving all extremities and following commands and was sent to PACU for recovery.
[2024-09-16] MEDS ORDERED: TRIMETHOBENZAMIDE 100 MG/ML 2 ML VIAL IM PRN (22:00)
[2024-09-16 22:17] LABS: Glucose,Whole Blood 110 mg/dL (70-110)
[2024-09-16] MEDS: HYDROcodone/APAP 5-325MG 1 EACH TAB PO PRN (22:32)
[2024-09-16 23:20] LABS: Basophils # (A) 0.01 10*3/uL (0.00-0.10); Basophils % (A) 0.1 %; Eosinophils # (A) 0.01 10*3/uL (0.04-0.35); Eosinophils % (A) 0.1 %; HCT 36.7 % (39.6-50.0); HGB 12.6 g/dL (13.0-17.0); Lymphocytes # (A) 0.63 10*3/uL (0.90-5.00); Lymphocytes % (A) 7.0 %; MCH 32.6 pg (27.0-32.0); MCHC 34.3 g/dL (32.0-37.0); MCV 95.1 fL (80.0-97.0); Monocytes # (A) 0.37 10*3/uL (0.20-1.00); Monocytes % (A) 4.1 %; Neutrophils # (A) 7.94 10*3/uL (1.80-7.70); Neutrophils % (A) 88.4 %; Platelet Count 210 10*3/uL (140-440); RBC 3.86 10*6/uL (4.40-5.60); RDW 13.2 % (11.5-14.5); WBC 8.99 10*3/uL (4.50-10.00)
[2024-09-17] MEDS: MORPHINE SULFATE 4 MG/ML SYRINGE IV PRN (02:55)
[2024-09-17 04:00] LABS: Basophils # (A) 0.02 10*3/uL (0.00-0.10); Basophils % (A) 0.3 %; Eosinophils # (A) 0.00 10*3/uL (0.04-0.35); Eosinophils % (A) 0.0 %; HCT 37.2 % (39.6-50.0); HGB 12.5 g/dL (13.0-17.0); Lymphocytes # (A) 0.64 10*3/uL (0.90-5.00); Lymphocytes % (A) 8.4 %; MCH 32.0 pg (27.0-32.0); MCHC 33.6 g/dL (32.0-37.0); MCV 95.1 fL (80.0-97.0); Monocytes # (A) 0.40 10*3/uL (0.20-1.00); Monocytes % (A) 5.2 %; Neutrophils # (A) 6.53 10*3/uL (1.80-7.70); Neutrophils % (A) 85.7 %; Platelet Count 227 10*3/uL (140-440); RBC 3.91 10*6/uL (4.40-5.60); RDW 13.3 % (11.5-14.5); WBC 7.62 10*3/uL (4.50-10.00)
[2024-09-17 04:11] LABS: African American GFR (CKD) >90 (>60 ml/min/1.73 sqM); Anion Gap 8 mmol/L; Blood Urea Nitrogen 11 mg/dL (9-20); Calcium 9.1 mg/dL (8.4-10.2); Carbon Dioxide 25 mmol/L (22-30); Chloride 102 mmol/L (98-107); Glucose 132 mg/dL (74-99); Magnesium 1.8 mg/dL (1.6-2.3); Non-African American GFR(CKD) >90 (>60 ml/min/1.73 sqM); Potassium 4.5 mmol/L (3.5-5.1); Sodium 135 mmol/L (137-145)
[2024-09-17] MEDS: MAGNESIUM SULFATE-D5W PMX 1 GM in DEXTROSE/WATER 1 100ML.BAG IVPB ONE (05:22)
[2024-09-17] MEDS: BENZOCAINE/MENTHOL LOZENG 1 EACH LOZENGE MUCOUS MEM PRN (05:49)
--- NOTE | 2024-09-17 07:33 | XR ---
EXAMINATION TYPE: XR chest 1V portable DATE OF EXAM: 09/17/2024 5:39 AM COMPARISON: Chest radiographs from 08/16/2024 TECHNIQUE: XR chest 1V portable Portable AP radiograph of the chest. CLINICAL INDICATION:Male, 64 years old with history of post procedure; FINDINGS: Lungs/Pleura: There is no evidence of pleural effusion, focal consolidation, or pneumothorax. Pulmonary vascularity: Unremarkable. Heart/mediastinum: Cardiomediastinal silhouette is unremarkable. Musculoskeletal: No acute osseous pathology. IMPRESSION: No acute cardiopulmonary disease/process. [facility], , 09/17/2024 7:31 AM
--- NOTE | 2024-09-17 07:55 | P.DS ---
Providers Date of admission: 09/16/24 19:53 Attending physician: Jai Forrester DO Consults: 09/16/24 21:24 Consult Physician Routine Consulting Provider: Chi Davila Consult Reason/Comments: medical management Do you want consulting provider notified?: Yes Primary care physician: France Neal [place] [facility] Course: 64-year-old male who is postop day #2 for a right carotid endarterectomy with patch angioplasty and VALERIE drain who was discharged on postop day number 1 in the afternoon had gone home and suddenly felt some pressure on the right side of his neck with rapid swelling. He came into the emergency department had a CT angiogram that showed a large 7 cm hematoma with active extubation and patient was brought back to the operating room and underwent exploration of right neck with evacuation of hematoma and hemorrhage control. He is currently in the intensive care unit he is sitting up in his bed. States overall he is feeling well. Minimal swelling of the right side of the neck and clavicle region which is soft with surrounding ecchymosis. VALERIE drain in place with dark old blood, minimal output. Patient is without any focal deficits. Hemodynamically stable. Hemoglobin on admission 13.6 with a 1 g drop to 12.5 today. Otherwise labs are unremarkable. Exam General appearance: The patient is alert, oriented, appears in no acute distress. HET: Head is normocephalic and atraumatic. Pupils are equal and reactive. Neck: Supple. Right side of neck with mild swelling and ecchymosis, soft, no hematoma noted. VALERIE drain in place with minimal old bloody drainage. Heart: Regular. Lungs: Equal expansion, normal respiratory effort. Abdomen: Soft, nontender, nondistended. Extremities: Normal skin color and turgor. Neurological: No focal deficits. Strength and sensation are grossly intact. Assessment 1. Expanding right neck hematoma status post reexploration of the right neck with evacuation of hematoma and hemorrhage control 2. Postop day #2 right carotid endarterectomy and patch angioplasty Plan 1. Encourage ambulation 2. Continue to monitor for bleeding and output from VALERIE drain. And minimal drainage VALERIE drain removed. 3. Consult to internal medicine for medical management 4. Likely discharge home later today 5. Discharge instructions reviewed, same as previous. Hold home blood pressure medications until follow-up with Dr. Neal. Do not need to resume Sudafed. The impression and plan of care has been dictated as directed. I performed a history and examination of this patient, discussed the same with the dictator. I agree with the dictator's note ,documented as a scribe. Any additional findings or plans will be noted. Procedures: Repeat exploration of the right neck with evacuation of hematoma and hemorrhage control Patient Condition at Discharge: Stable Plan - Discharge Summary Discharge Rx Participant: Yes New Discharge Prescriptions: Continue Albuterol Inhaler [Ventolin Hfa Inhaler] 2 puff INHALATION Q6H PRN PRN Reason: Shortness Of Breath Glucosamine/Chondr Chen A Sod [Osteo Bi-Flex Caplet] 1 tab PO DAILY Cholecalciferol [Vitamin D3 (25 Mcg = 1000 Iu)] 25 mcg PO DAILY Cinnamon Bark [Cinnamon] 500 mg PO DAILY Cider Vinegar [Apple Cider Vinegar] 300 mg PO DAILY L.acidoph,Paracasei, B.lactis [Probiotic] 1 cap PO DAILY Flaxseed Oil (Unknown Dose) 1 cap PO DAILY Ezetimibe [Zetia] 10 mg PO DAILY Clopidogrel [Plavix] 75 mg PO DAILY Ursula 500 mg PO DAILY Aspirin [Adult Low Dose Aspirin EC] 81 mg PO DAILY Acetaminophen Tab [Tylenol] 650 mg PO Q4HR PRN tab PRN Reason: Pain Red Beet Root (Unknown Dose) 1 tab PO DAILY Magnesium Glycinate (Unknown Dose) 1 cap PO DAILY Discharge Medication List Clopidogrel [Plavix] 75 mg PO DAILY 09/10/22 [History] Ezetimibe [Zetia] 10 mg PO DAILY 09/10/22 [History] Albuterol Inhaler [Ventolin Hfa Inhaler] 2 puff INHALATION Q6H PRN 09/10/24 [History] Aspirin [Adult Low Dose Aspirin EC] 81 mg PO DAILY 09/10/24 [History] Cholecalciferol [Vitamin D3 (25 Mcg = 1000 Iu)] 25 mcg PO DAILY 09/10/24 [History] Cider Vinegar [Apple Cider Vinegar] 300 mg PO DAILY 09/10/24 [History] Cinnamon Bark [Cinnamon] 500 mg PO DAILY 09/10/24 [History] Ursula 500 mg PO DAILY 09/10/24 [History] Glucosamine/Chondr Chen A Sod [Osteo Bi-Flex Caplet] 1 tab PO DAILY 09/10/24 [History] L.acidoph,Paracasei, B.lactis [Probiotic] 1 cap PO DAILY 09/10/24 [History] Acetaminophen Tab [Tylenol] 650 mg PO Q4HR PRN tab 09/16/24 [Rx] Flaxseed Oil (Unknown Dose) 1 cap PO DAILY 09/17/24 [History] Magnesium Glycinate (Unknown Dose) 1 cap PO DAILY 09/17/24 [History] Red Beet Root (Unknown Dose) 1 tab PO DAILY 09/17/24 [History] Follow up Appointment(s)/Referral(s): France Neal MD [Primary Care Provider] - 1-2 days Jai Forrester DO [STAFF PHYSICIAN] - 2 Weeks Activity/Diet/Wound Care/Special Instructions: No strenuous activity or heavy lifting greater than 10 pounds. May shower tomorrow but no tub bathing or soaking. Watch incision site for infection i ncluding redness, drainage, or temperature greater than 100.4. If you notice he symptoms please call office Continue to hold home blood pressure medications until follow-up with Dr. Neal You may discontinue using Sudafed 60 mg tablets as previously directed Discharge Disposition: HOME SELF-CARE
[2024-09-17] MEDS: CLOPIDOGREL 75 MG TAB PO SCH (08:10)
[2024-09-17] MEDS: ASPIRIN 81 MG PO SCH (08:10)
--- NOTE | 2024-09-17 08:53 | P.CONS ---
History of Present Illness - Reason for Consult Consult date: 09/17/24 - History of Present Illness Patient is a 64-year-old male with history of TIA, carotid artery stenosis, hypertension, dyslipidemia was here for elective right carotid endarterectomy with patch angioplasty. Patient was discharged yesterday. Soon after getting home, patient started noticing he increased neck size around the surgical incision. This prompted him to come back to the emergency. He denies any chest pain, shortness of breath, palpitations, nausea, vomiting, urinary or bowel complaints. He denied any lightheadedness. CT on arrival showed large hematoma measuring up to 10 cm extending into the inferior right-sided neck supraclavicular tissue. EKG on arrival showed sinus rhythm. Chest x-ray did not show any acute process. Initial hemoglobin was 13.6, currently at 12.5. Rest of the labs were otherwise unremarkable. Sound physicians consulted for medical management. Patient went back to the operating room, underwent exploration of right neck with evacuation of hematoma, VALERIE drain was placed. Pertinent positives and negatives as discussed in HPI, a complete review of systems was performed and all other systems are negative. Patient seen and examined at bedside. Vital signs reviewed General: nontoxic, no distress, appears at stated age Derm: warm, dry, dressing clean, dry, intact VALERIE drain with minimal blood Head: atraumatic, normocephalic, symmetric Eyes: EOMI, no lid lag, anicteric sclera, pupils equal round reactive to light ENT: Nose and ears atraumatic Neck: No thyromegaly, supple Mouth: no lip lesion, mucus membranes moist Cardiovascular: S1S2 reg, no murmur, no edema Lungs: clear to auscultation bilateral, no rhonchi, no rales, no wheeze, no accessory muscle use Abdominal: soft, nontender to palpation, no guarding, no appreciable organomegaly Ext: no gross muscle atrophy, muscle strength muscle strength 5 out of 5 in all 4 extremities, no contractures Neuro: CN II-XII grossly intact Psych: Alert, oriented, appropriate affect Assessment/Plan: Active: Right neck hematoma s/p splint patient and evacuation of hematoma recent carotid artery Status post right carotid endarterectomy with patch angioplasty History of carotid artery stenosis History of TIA - Continue aspirin 81 mg, Plavix 75 mg daily-restart ezetimibe 10 mg daily Continue to hold home antihypertensives Chronic: Dyslipidemia Patient is medically optimized for discharge home. Thank you for allowing us to participate in the care of this pleasant patient. Do not hesitate to contact us with questions. Someone can be reached from the [facility] hospitalist group all hours of the day at [phone] or via [employer]. Past Medical History Past Medical History: Asthma, CVA/TIA, Hyperlipidemia, Hypertension Additional Past Medical History / Comment(s): allergies-rare asthma with air quality or pollens, TIA, R carotid stenosis History of Any Multi-Drug Resistant Organisms: None Reported Past Surgical History: Hernia Repair Additional Past Surgical History / Comment(s): Colonoscopy, carotid endarterectomy Past Anesthesia/Blood Transfusion Reactions: No Reported Reaction, Motion Sickness Additional Past Anesthesia/Blood Transfusion Reaction / Comm: No hx of blood transfusion; motion sickness on boat Past Psychological History: No Psychological Hx Reported Smoking Status: Never smoker Past Alcohol Use History: None Reported Past Drug Use History: None Reported - Past Family History Mother Family Medical History: Cancer Additional Family Medical History / Comment(s): lymphoma Father Family Medical History: Cancer Additional Family Medical History / Comment(s): stomach Medications and Allergies Home Medications Medication Instructions Recorded Confirmed Type Clopidogrel [Plavix] 75 mg PO DAILY 09/10/22 09/17/24 History Ezetimibe [Zetia] 10 mg PO DAILY 09/10/22 09/17/24 History Albuterol Inhaler [Ventolin Hfa 2 puff INHALATION Q6H PRN 09/10/24 09/17/24 History Inhaler] Aspirin [Adult Low Dose Aspirin EC] 81 mg PO DAILY 09/10/24 09/17/24 History Cholecalciferol [Vitamin D3 (25 25 mcg PO DAILY 09/10/24 09/17/24 History Mcg = 1000 Iu)] Cider Vinegar [Apple Cider Vinegar] 300 mg PO DAILY 09/10/24 09/17/24 History Cinnamon Bark [Cinnamon] 500 mg PO DAILY 09/10/24 09/17/24 History Ursula 500 mg PO DAILY 09/10/24 09/17/24 History Glucosamine/Chondr Chen A Sod [Osteo 1 tab PO DAILY 09/10/24 09/17/24 History Bi-Flex Caplet] L.acidoph,Paracasei, B.lactis 1 cap PO DAILY 09/10/24 09/17/24 History [Probiotic] Acetaminophen Tab [Tylenol] 650 mg PO Q4HR PRN tab 09/16/24 09/17/24 Rx Flaxseed Oil (Unknown Dose) 1 cap PO DAILY 09/17/24 09/17/24 History Magnesium Glycinate (Unknown Dose) 1 cap PO DAILY 09/17/24 09/17/24 History Red Beet Root (Unknown Dose) 1 tab PO DAILY 09/17/24 09/17/24 History Allergies Allergy/AdvReac Type Severity Reaction Status Date / Time cat dander Allergy Rash/Hives Verified 09/17/24 08:37 mold Allergy Rash/Hives Verified 09/17/24 08:37 Penicillins Allergy Rash/Hives Verified 09/17/24 08:37 Physical Exam Vitals: Vital Signs Temp Pulse Pulse Resp BP BP Pulse Ox 09/17/24 08:00 98.4 F 64 12 108/72 96 09/17/24 07:00 70 10 L 106/64 98 09/17/24 06:00 90 27 H 113/65 96 09/17/24 05:00 59 L 14 94/58 97 09/17/24 04:00 64 10 L 97/60 97 09/17/24 03:00 68 14 108/66 96 09/17/24 02:00 64 13 104/61 97 09/17/24 01:00 70 14 109/64 97 09/17/24 00:35 75 14 97 09/17/24 00:00 97.9 F 70 13 106/65 96 09/16/24 23:00 81 14 118/73 94 L 09/16/24 22:20 80 16 136/75 97 09/16/24 22:15 98.0 F 78 16 96 09/16/24 22:00 84 16 128/78 99 09/16/24 21:45 78 16 134/73 99 09/16/24 21:30 78 16 125/69 98 09/16/24 21:15 85 16 141/76 98 09/16/24 21:12 97.8 F 97 16 134/79 98 09/16/24 19:53 74 14 149/66 98 09/16/24 19:06 71 15 155/61 96 09/16/24 18:01 60 18 132/71 98 09/16/24 17:52 98.2 F 68 18 150/75 97 Intake and Output 09/16/24 09/17/24 09/17/24 22:59 06:59 14:59 Intake Total 901 50 Output Total 10 1600 400 Balance 891 -1550 -400 Intake: IV 901 Intake, IV Titration 50 Amount ceFAZolin 2 gm In Sodium 50 Chloride 0.9% 50 ml @ 100 mls/hr IVPB Q8H [facility] Rx#: [id number] Output: Urine 0 1600 400 Estimated Blood Loss 10 Other: Voiding Method Urinal Urinal Weight 90.265 kg 90.8 kg Results CBC & Chem 7: 09/17/24 03:14 09/17/24 03:14 Labs: Abnormal Lab Results - Last 24 Hours (Table) 09/16/24 09/16/24 09/16/24 Range/Units 18:07 18:07 23:12 RBC 4.16 L 3.86 L (4.40-5.60) 10*6/uL Hgb 12.6 L (13.0-17.0) g/dL Hct 39.3 L 36.7 L (39.6-50.0) % MCH 32.7 H 32.6 H (27.0-32.0) pg MPV 9.3 L (9.5-12.2) fL Neutrophils # 7.94 H (1.80-7.70) 10*3/uL Lymphocytes # 0.63 L (0.90-5.00) 10*3/uL Eosinophils # 0.01 L (0.04-0.35) 10*3/uL Sodium (137-145) mmol/L Creatinine 0.65 L (0.66-1.25) mg/dL Glucose 105 H (74-99) mg/dL 09/17/24 09/17/24 Range/Units 03:14 03:14 RBC 3.91 L (4.40-5.60) 10*6/uL Hgb 12.5 L (13.0-17.0) g/dL Hct 37.2 L (39.6-50.0) % MCH (27.0-32.0) pg MPV (9.5-12.2) fL Neutrophils # (1.80-7.70) 10*3/uL Lymphocytes # 0.64 L (0.90-5.00) 10*3/uL Eosinophils # 0.00 L (0.04-0.35) 10*3/uL Sodium 135 L (137-145) mmol/L Creatinine 0.51 L (0.66-1.25) mg/dL Glucose 132 H (74-99) mg/dL
[2024-09-17] MEDS: EZETIMIBE 10 MG TAB PO SCH (09:56)
[2024-09-17 12:03] VITALS: TEMP 98.2
[2024-09-17 14:22] VITALS: BP 118/69; PULSE 66; RESP 12
== END 2024-09-17 14:45 | disposition home or self-care (01) | DRG 909 ==
LOC: EC 17:51 → 2SICU 19:53
PROVIDERS: ADMIT Surgery; ATTEND Surgery
PROC: 0W360ZZ Control Bleeding in Neck, Open Approach (ICD-10-PCS; 2024-09-16)
PROC: 0J940ZZ Drainage of Right Neck Subcutaneous Tissue and Fascia, Open Approach (ICD-10-PCS; principal; 2024-09-16 19:49)
DX: L76.32 Postprocedural hematoma of skin and subcutaneous tissue following other procedure (principal); E78.5 Hyperlipidemia, unspecified; I10 Essential (primary) hypertension; J45.909 Unspecified asthma, uncomplicated; Y84.8 Other medical procedures as the cause of abnormal reaction of the patient, or of later complication, without mention of misadventure at the time of the procedure; Z79.02 Long term (current) use of antithrombotics/antiplatelets; Z79.82 Long term (current) use of aspirin; Z79.899 Other long term (current) drug therapy; Z86.73 Personal history of transient ischemic attack (TIA), and cerebral infarction without residual deficits; Z88.0 Allergy status to penicillin
CPT/HCPCS: 36415; 70496; 70498; 71045; 80048; 80053; 83735; 85025; 85610; 85730; 93005; 96374; 96375; 99291